=== PATIENT | female | born 1960 | race Caucasian/White ===

== ENCOUNTER → 2016-08-11 | Outpatient (CLI) | payer OTHER ==
[2016-08-13 09:58] LABS: VITAMIN D 25-HYDROXY 8.1 ng/mL (30.0-100.0)
== END ==
LOC: OD 17:11
DX: M19.90 Unspecified osteoarthritis, unspecified site (principal)
CPT/HCPCS: 36415; 82306; 86038; 86430

== ENCOUNTER → 2016-08-11 | Outpatient (CLI) | payer OTHER | LOC: SP 15:57 | DX: M79.661 Pain in right lower leg (principal) | CPT/HCPCS: 93971 ==

== ENCOUNTER 2016-08-30 09:31 | Day surgery (SDC) | payer OTHER ==
[~2016-08-30 09:31] MED LIST: PROPOFOL INJ 200 MG/20 ML VIAL IV ONE
[2016-08-30] MEDS ORDERED: PROPOFOL INJ 200 MG/20 ML VIAL IV ONE (10:40)
[2016-08-30 11:45] VITALS: BP 141/76
--- NOTE | 2016-08-30 13:47 | Operative Report ---
Operative Report DATE OF SURGERY: 08/30/16 Operative Report: The risks, benefits and alternatives of the procedure including risks of bleeding, perforation requiring surgery are explained to the patient detail and informed consent is obtained. Patient is placed in the left lateral decubital position and brought back to the endoscopy suite. Timeout is called. Propofol medications administered. A rectal examination was done which did not reveal any masses, tears or fissures. An Olympus video scope was inserted into the patient's rectum. The scope was then advanced all the way to the cecum. The cecum was identified by the usual anatomical landmarks of the ileocecal valve as well as the appendiceal office. Photodocumentation is obtained. Prep is good. The scope was then sequentially pulled back via the various segments of the colon including the ascending colon, hepatic flexure, transverse colon, splenic flexure, descending colon and finally into the rectosigmoid portions of the colon. Retroflexion maneuvers performed. Following this the patient's stretcher was turned around and the EGD performed. The risks benefits and alternatives of the procedure explained to the patient in detail and informed consent is obtained that GIF Olympus video scope was inserted into the patient's mouth and hypopharynx the esophagus is identified intubated and insufflated the scope was then advanced through the esophagus stomach and duodenum retroflexion maneuver is done the esophagus stomach and first and second portions of the duodenum examined PREOPERATIVE DIAGNOSIS: For the colonoscopy indications include 1. Change of bowel habits 2. Blood in stool 3. History of polyps patient states that she has Crohn's disease for colon "18 years but has not been on any medication. Epigastric pain POSTOPERATIVE DIAGNOSIS: Mild gastritis status post biopsy. Mild right-sided colitis status post biopsy. No evidence of ulcers or inflammation to suggest Crohn's disease. OPERATION: Colonoscopy with biopsy. EGD with biopsy ANESTHESIA: LMAC TISSUE REMOVED OR ALTERED: Colon specimens obtained. Gastric specimens obtained COMPLICATIONS: None. ESTIMATED BLOOD LOSS: none. INTRAOPERATIVE FINDINGS: As described above. PROCEDURE: Patient tolerated the procedure well. No immediate postprocedure complications are noted. Patient is discharged in good condition. Discharge date 08/30/2016. Discharge diet: Regular. Discharge activity: Regular. Patient does have a 2-3 week follow-up to discuss findings. We'll await on biopsies. Patient is instructed to call the office or proceed to the emergency room should there be any further problems or questions. Surveillance colonoscopy in the next 7-10 years if biopsies are negative.
== END 2016-08-30 11:30 | disposition home or self-care (01) ==
LOC: END 09:31
PROVIDERS: ATTEND Internal Medicine Gastroenterology
PROC: 0DB68ZX Excision of Stomach, Via Natural or Artificial Opening Endoscopic, Diagnostic (ICD-10-PCS; principal; 2016-08-30 11:30)
PROC: 0DBF8ZX Excision of Right Large Intestine, Via Natural or Artificial Opening Endoscopic, Diagnostic (ICD-10-PCS; 2016-08-30 11:30)
DX: K29.50 Unspecified chronic gastritis without bleeding (principal); B96.81 Helicobacter pylori [H. pylori] as the cause of diseases classified elsewhere; K52.9 Noninfective gastroenteritis and colitis, unspecified; E11.9 Type 2 diabetes mellitus without complications; I10 Essential (primary) hypertension; F17.210 Nicotine dependence, cigarettes, uncomplicated; Z79.899 Other long term (current) drug therapy; Z79.84 Long term (current) use of oral hypoglycemic drugs
CPT/HCPCS: 43239; 45380; 82962; 88342 ×2; 88305 ×2; J2704; 740

== ENCOUNTER 2017-08-03 11:45 | Emergency (ER) | payer OTHER ==
--- NOTE | 2017-08-03 12:44 | ER Document Report ---
ED Respiratory Problem - General Chief Complaint: Cough Stated Complaint: COUGH,CONGESTION,BACK PAIN Time Seen by Provider: 08/03/17 12:15 Mode of Arrival: Ambulatory Information source: Patient Notes: 57-year-old female presents to ED for complaint of cough congestion chest discomfort nasal drainage sinus pressure headache times a week with no fever. She states she does smoke a half pack a day. 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 TRAVEL OUTSIDE OF THE [place] IN LAST 30 DAYS: No - HPI Patient complains to provider of: Chest pain, Cough - Chest discomfort, Short of breath Onset: Last week Duration: Continuous Initiating Event: URI, Other - Smoker Quality of pain: Achy Severity: Moderate Pain Level: 3 Context: Smoker Cough: Nonproductive Sputum amount: None Associated symptoms: Congestion, Cough, PND, Runny nose, Sinus pain/pressure, Short of breath, Sore Throat. denies: Fever Similar symptoms previously: Yes Recently seen / treated by doctor: No - Related Data Allergies/Adverse Reactions: meloxicam [From Mobic] Allergy (Mild, Verified 08/03/17 11:47) RASH, ITCHING midazolam [From Versed] Adverse Reaction (Severe, Verified 08/03/17 11:47) ALTERED MENTAL STATUS, SHAKING OF EXTREMITIES NSAIDS (Non-Steroidal Anti-Inflamma [Nsaids] Adverse Reaction (Severe, Verified 08/03/17 11:47) STOMACH PAIN Past Medical History - General Information source: Patient - Social History Smoking Status: Current Every Day Smoker Cigarette use (# per day): Yes - 10 cigarettes a day Chew tobacco use (# tins/day): No Smoking Education Provided: Yes - 3 minutes Frequency of alcohol use: Occasional Drug Abuse: None Occupation: [employer] Family History: Reviewed & Not Pertinent Patient has suicidal ideation: No Patient has homicidal ideation: No - Past Medical History Cardiac Medical History: Reports: Hx Hypertension Pulmonary Medical History: Reports: Hx Bronchitis, Hx Pneumonia EENT Medical History: Reports: None Neurological Medical History: Reports: None Endocrine Medical History: Reports: Hx Diabetes Mellitus Type 2 Renal/ Medical History: Reports: None Malignancy Medical History: Reports: None GI Medical History: Reports: None Musculoskeltal Medical History: Reports Hx Arthritis Skin Medical History: Reports None Psychiatric Medical History: Reports: None Traumatic Medical History: Reports: None Infectious Medical History: Reports: None Surgical Hx: Negative Past Surgical History: Reports: None - Immunizations Hx Diphtheria, Pertussis, Tetanus Vaccination: No Review of Systems - Review of Systems Constitutional: Recent illness EENT: Nose discharge, Sinus pressure, Sinus discharge Cardiovascular: No symptoms reported Respiratory: Cough Gastrointestinal: No symptoms reported Genitourinary: No symptoms reported Female Genitourinary: No symptoms reported Musculoskeletal: No symptoms reported Skin: No symptoms reported Hematologic/Lymphatic: No symptoms reported Neurological/Psychological: Headaches -: Yes All other systems reviewed and negative Physical Exam - Vital signs Vitals: Temp Pulse Resp BP Pulse Ox 98.0 F 88 20 154/78 H 100 08/03/17 11:50 08/03/17 11:50 08/03/17 11:50 08/03/17 11:50 08/03/17 11:50 Interpretation: Normal - General General appearance: Appears well, Alert - HEENT Head: Normocephalic, Atraumatic Eyes: Normal Pupils: PERRL Ears: Normal External canal: Normal Tympanic membrane: Normal Sinus: Normal Nasal: Purulent discharge, Swelling, Clear rhinorrhea Mouth/Lips: Normal Mucous membranes: Normal Pharynx: Post nasal drainage Neck: Normal - Respiratory Respiratory status: No respiratory distress Chest status: Nontender Breath sounds: Normal Chest palpation: Normal - Cardiovascular Rhythm: Regular Heart sounds: Normal auscultation Murmur: No - Abdominal Inspection: Normal Distension: No distension Bowel sounds: Normal Tenderness: Nontender Organomegaly: No organomegaly - Back Back: Normal, Nontender - Extremities General upper extremity: Normal inspection, Nontender, Normal color, Normal ROM , Normal temperature General lower extremity: Normal inspection, Nontender, Normal color, Normal ROM , Normal temperature, Normal weight bearing. No: Gerard's sign - Neurological Neuro grossly intact: Yes Cognition: Normal Orientation: AAOx4 Chuck Coma Scale Eye Opening: Spontaneous Chuck Coma Scale Verbal: Oriented Chuck Coma Scale Motor: Obeys Commands Chuck Coma Scale Total: 15 Speech: Normal Motor strength normal: LUE, RUE, LLE, RLE Sensory: Normal - Psychological Associated symptoms: Normal affect, Normal mood - Skin Skin Temperature: Warm Skin Moisture: Dry Skin Color: Normal Course - Re-evaluation Re-evalutation: 08/03/17 14:08 Chest x-ray discussed with patient. Written report given to patient to follow- up with her primary doctor. Patient requesting antibiotics. Education given concerning the fact that antibiotic do not have a viral illness and she does not need antibiotics at this time. Discussed different treatments for cold. And that she should follow-up with her primary doctor. - Vital Signs Vital signs: Temp Pulse Resp BP Pulse Ox 98.0 F 88 20 154/78 H 100 08/03/17 11:50 08/03/17 11:50 08/03/17 11:50 08/03/17 11:50 08/03/17 11:50 - Diagnostic Test Radiology reviewed: Image reviewed, Reports reviewed Discharge - Discharge Clinical Impression: URI (upper respiratory infection) Qualifiers: URI type: unspecified URI Qualified Code(s): J06.9 - Acute upper respiratory infection, unspecified Condition: Stable Disposition: HOME, SELF-CARE Additional Instructions: UPPER RESPIRATORY ILLNESS: You have a viral infection of the respiratory passages -- a "cold." This common infection causes nasal congestion, drainage, and often sore throat and cough. It is highly contagious. The disease usually lasts about 10 to 14 days. There is no "cure" for the viral infection -- it must run its course. If there is a complication, such as bacterial infection in the nose, sinuses, middle ear, or bronchial tubes, antibiotics may be required. The antibiotics won't affect the virus. Drink plenty of fluids. A humidifier may help. An expectorant medication or decongestant may make you more comfortable. Use acetaminophen or ibuprofen for fever or aches. See the doctor if fever persists over two days, if there is any significant worsening of your symptoms, or if you simply fail to improve as expected. High Blood Pressure When your blood pressure was taken today it was elevated. Today's reading was__154/78 . Pre-hypertension/Hypertension: The patient has been informed that they may have pre-hypertension or Hypertension based on a blood pressure reading in the emergency department. I recommend that the patient call the primary care provider listed on their discharge instructions or a physician of their choice this wee to arrange follow up for further evaluation of possible pre- hypertension or Hypertension. Sometimes, stress or illness causes a temporary elevation of your blood pressure. We suggest that you get your blood pressure measured three more times during the next few days to see if this is more than a temporary abnormality. If your blood pressure is greater than 150/90 on each occasion, you must have treatment. Some simple things you can do to help are: If you have blood pressure medicine but aren't using it regularly, start taking it again. Get some aerobic exercise for at least 20 minutes on a daily basis. (See your doctor before beginning a new exercise program.) Eat a low-fat diet. Lose excess weight. Avoid salty foods and avoid adding salt to any of the foods you eat. Avoid diet pills, decongestants, "energizing" herbs, and other medicines that elevate blood pressure. If left untreated, hypertension greatly enhances your risk for developing heart disease and strokes. Please don't ignore this problem. COUGH-SUPPRESSANT & EXPECTORANT MEDICATION: You are to use a cough medication as needed for relief of symptoms. This medicine is a combination of an expectorant (to make the mucous thinner and more easily "coughed up") and a cough suppressant (to reduce the frequency of coughing). The cough-suppressant medicine is related to narcotics. You may experience mild nausea and sleepiness. Some patients who are very sensitive to narcotics may have stomach pain from this medicine. Taking the medicine with food reduces these side effects. Do not drive or work with machinery until you know how this medicine affects you. The expectorant should have no side effects. Iodine-containing expectorants (such as organidin) should not be taken by persons with active thyroid disease unless approved by your doctor. Call the doctor if you develop shortness of breath, hives, rash, itching, lightheadedness, or severe nausea and vomiting. USE OF ACETAMINOPHEN (Tylenol): Acetaminophen may be taken for pain relief or fever control. It's much safer than aspirin, offering a wider range of "safe" dosages. It is safe during . Some brand names are Tylenol, Panadol, Datril, Anacin 3, Tempra, and Liquiprin. Acetaminophen can be repeated every four hours. The following are maximum recommended dosages: >89 pounds or adults 650 mg to 900 mg Acetaminophen can be repeated every four hours. Maximum dose not to exceed 4000 mg a day. SMOKING: If you smoke, you should stop smoking. The tar and chemicals in cigarette smoke are harmful. Smoking has been shown to cause: emphysema chronic bronchitis lung cancer mouth and throat cancer stomach and pancreas cancer premature aging defects In addition, smoking increases ear and lung infections in children of smokers. FOLLOW-UP CARE: If you have been referred to a physician for follow-up care, call the physician s office for an appointment as you were instructed or within the next two days. If you experience worsening or a significant change in your symptoms, notify the physician immediately or return to the Emergency Department at any time for re-evaluation. Forms: Elevated Blood Pressure, Smoking Cessation Education, Return to Work Referrals: BENEDICT LOCK MD [Primary Care Provider] - Follow up as needed
--- NOTE | 2017-08-03 13:32 | RADIOLOGY REPORT (SQ) ---
EXAM DESCRIPTION: CHEST PA/LAT COMPLETED DATE/TIME: 08/03/2017 1:05 pm REASON FOR STUDY: cough congestion sick week smokes COMPARISON: 07/01/2016 EXAM PARAMETERS: NUMBER OF VIEWS: two views TECHNIQUE: Digital Frontal and Lateral radiographic views of the chest acquired. RADIATION DOSE: NA LIMITATIONS: none FINDINGS: LUNGS AND PLEURA: No opacities, masses or pneumothorax. No pleural effusion. MEDIASTINUM AND HILAR STRUCTURES: No masses or contour abnormalities. HEART AND VASCULAR STRUCTURES: Heart normal size. No evidence for failure. BONES: No acute findings. HARDWARE: Clips right upper quadrant post cholecystectomy OTHER: No other significant finding. IMPRESSION: NO SIGNIFICANT RADIOGRAPHIC FINDING IN THE CHEST. TECHNICAL DOCUMENTATION: JOB ID: [id number] [employer]- All Rights Reserved
[2017-08-03 14:11] VITALS: BP 158/79
== END 2017-08-03 14:11 | disposition home or self-care (01) ==
LOC: ER 11:45
DX: J06.9 Acute upper respiratory infection, unspecified (principal); R05 Cough; R09.81 Nasal congestion; M54.9 Dorsalgia, unspecified; R09.89 Other specified symptoms and signs involving the circulatory and respiratory systems; R51 Headache; F17.210 Nicotine dependence, cigarettes, uncomplicated
CPT/HCPCS: 71046; 99283

== ENCOUNTER 2017-12-20 11:51 | Emergency (ER) | payer OTHER ==
[2017-12-20 12:04] VITALS: BP 148/88
[2017-12-20] MEDS ORDERED: CYCLOBENZAPRINE HCL 10 MG TABLET PO ONE (12:12)
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
== END 2017-12-20 13:26 | disposition home or self-care (01) ==
LOC: ER 11:51
DX: S16.1XXA Strain of muscle, fascia and tendon at neck level, initial encounter (principal); M54.6 Pain in thoracic spine; M79.602 Pain in left arm; V89.2XXA Person injured in unspecified motor-vehicle accident, traffic, initial encounter; F17.200 Nicotine dependence, unspecified, uncomplicated; I10 Essential (primary) hypertension; E11.9 Type 2 diabetes mellitus without complications
CPT/HCPCS: 71046; 72110; 99284

== ENCOUNTER → 2018-03-09 | Outpatient (CLI) | payer OTHER ==
[~2018-03-09] MED LIST changes: +DIAZEPAM 2 MG TABLET ONE; -PROPOFOL INJ 200 MG/20 ML VIAL IV ONE
--- NOTE | 2018-03-09 17:47 | RADIOLOGY REPORT (SQ) ---
EXAM DESCRIPTION: MRI CERVICAL SPINE WITHOUT COMPLETED DATE/TIME: 03/09/2018 11:44 am REASON FOR STUDY: NECK PAIN M54.2 CERVICALGIA M25.512 PAIN IN LEFT SHOULDER COMPARISON: None. TECHNIQUE: Sagittal and Axial imaging includes T1, T2, STIR and gradient echo sequences. LIMITATIONS: None. FINDINGS: ALIGNMENT: Normal. VERTEBRAE: Intact. BONE MARROW: Normal. No marrow replacement or reactive changes. DISCS: Diffuse decreased T2 weighted intervertebral disc signal. Disc space loss of height at C5-6 a nd C6-7 HARDWARE: None in the spine. CORD AND BASE OF BRAIN: Normal in size and signal intensity. SOFT TISSUES: No soft tissue masses. C1-C2: No significant spinal stenosis. C2-C3: No significant spinal stenosis or exit foraminal stenosis. C3-C4: Left uncovertebral hypertrophy/bony spurring causes high-grade left foraminal stenosis. No ce ntral stenosis or right foraminal narrowing. C4-C5: No central or right foraminal narrowing. Mild left foraminal stenosis from facet and uncovert ebral hypertrophy. C5-C6: Mild diffuse posterior disc bulge and bony spurring effaces the ventral thecal sac and abuts t he ventral cord without cord flattening or abnormal intrinsic cord signal. Borderline central canal narrowing. No right foraminal narrowing. Moderate left foraminal stenosis from facet and uncoverteb ral hypertrophy C6-C7: Bulky left-sided uncovertebral joint bony spurring is present causing high-grade left foramina l stenosis at C6-7. This is best shown on axial T2 series 7, images 91-97. Elsewhere at C6-7, mild posterior disc bulge and bony spurring partly effaces the ventral thecal sac, without cord flattening or abnormal intrinsic cord signal. Borderline central canal stenosis. Mild right foraminal narrowi ng. C7-T1: No central stenosis or right foraminal narrowing. Mild left foraminal narrowing from facet an d uncovertebral hypertrophy. UPPER THORACIC: Incompletely imaged. No significant spinal stenosis or exit foraminal stenosis. OTHER: No other significant finding. IMPRESSION: Significant left-sided foraminal stenosis at C6-7, and to a lesser extent and C5-6 and C 7-T1. TECHNICAL DOCUMENTATION: JOB ID: [id number] [employer]- All Rights Reserved Reading location - IP/workstation name: [facility]
--- NOTE | 2018-03-11 10:29 | RADIOLOGY REPORT (SQ) ---
EXAM DESCRIPTION: MRI LT UPPER JOINT WITHOUT COMPLETED DATE/TIME: 03/09/2018 11:44 am REASON FOR STUDY: L SHOULDER PAIN M54.2 CERVICALGIA M25.512 PAIN IN LEFT SHOULDER COMPARISON: None. TECHNIQUE: Left shoulder images acquired and stored on PACS. Multiplanar imaging to include fat sens itive sequences such as T1, water sensitive sequences such as FST2/STIR, cartilage sensitive sequence s such as FSPD/gradient-echo sequences. LIMITATIONS: None. FINDINGS: BONE MARROW AND CORTEX: No worrisome bone lesions or marrow replacement. No occult fractur es. JOINT OR BURSAL EFFUSION: No significant joint or bursal fluid. No suggestion of loose bodies. GLENO-HUMERAL ARTICULATION: Chondral thinning without discrete defects identified. No significant re active bone change. ACROMION AND AC JOINT: Mild degenerative overgrowth. No subacromial compromise or significant acro mial spurring. ROTATOR CUFF AND INTERVAL: Mild bursal surface fraying in the cuff, particularly along the anterior s upraspinatus. No high-grade partial or full-thickness tear evident, however. No cuff muscle atrophy . LABRUM AND BICEPS LABRAL COMPLEX: Intact. No labral tear. Intra-articular long-head biceps tendon n ormal. Distal biceps in normal location in bicipital groove. REMAINDER OF LABRUM AND IGHL : No gross tear detected. PERIARTICULAR AND ADJACENT SOFT TISSUES: No masses or abnormal nodes. OTHER: No other significant finding. IMPRESSION: 1. Mild cuff disease. No suggestion of significant rotator cuff tear. 2. Fairly mild A C and glenohumeral DJD. Other findings as above. TECHNICAL DOCUMENTATION: JOB ID: [id number] [employer]- All Rights Reserved Reading location - IP/workstation name: [facility]
== END ==
LOC: RAD 09:26
DX: M54.2 Cervicalgia (principal); M25.512 Pain in left shoulder; M19.012 Primary osteoarthritis, left shoulder; M48.02 Spinal stenosis, cervical region
CPT/HCPCS: 73221; 72141; J3490

== ENCOUNTER → 2018-10-02 | Outpatient (CLI) | payer OTHER ==
[2018-10-02 09:42] LABS: ABSOLUTE EOSINOPHILS # (AUTO) 0.1 10^3/uL (0.0-0.6); ABSOLUTE LYMPHOCYTES (AUTO) 2.1 10^3/uL (0.5-4.7); ABSOLUTE MONOCYTES (AUTO) 0.6 10^3/uL (0.1-1.4); BASOPHILS % (AUTO) 0.6 % (0-2); EOSINOPHILS % (AUTO) 1.4 % (0-6); HEMATOCRIT 38.3 % (36.0-47.0); HEMOGLOBIN 13.6 g/dL (12.0-15.5); MEAN CORPUSCULAR HEMOGLOBIN 35.8 pg (27.0-33.4); MEAN CORPUSCULAR HGB CONC 35.4 g/dL (32.0-36.0); MEAN CORPUSCULAR VOLUME 101 fl (80-97); PLATELET COUNT 326 10^3/uL (150-450); RED BLOOD COUNT 3.78 10^6/uL (3.72-5.28); RED CELL DISTRIBUTION WIDTH 12.2 % (11.5-14.0); TOTAL CELLS COUNTED % (AUTO) 100 %; WHITE BLOOD COUNT 5.8 10^3/uL (4.0-10.5)
[2018-10-02 10:02] LABS: ALANINE AMINOTRANSFERASE 32 U/L (9-52); ALBUMIN 4.9 g/dL (3.5-5.0); ALKALINE PHOSPHATASE 71 U/L (38-126); ANION GAP 10 (5-19); ASPARTATE AMINO TRANSFERASE 27 U/L (14-36); BILIRUBIN,DIRECT 0.1 mg/dL (0.0-0.4); BILIRUBIN,TOTAL 0.5 mg/dL (0.2-1.3); BLOOD UREA NITROGEN 7 mg/dL (7-20); CALCIUM 10.1 mg/dL (8.4-10.2); CARBON DIOXIDE 28 mmol/L (22-30); CHLORIDE 102 mmol/L (98-107); CHOLESTEROL 192.95 mg/dL (0-200); GLUCOSE 104 mg/dL (75-110); POTASSIUM 5.1 mmol/L (3.6-5.0); SODIUM 139.9 mmol/L (137-145); TOTAL PROTEIN 7.5 g/dL (6.3-8.2); TRIGLYCERIDES 59 mg/dL (<150)
[2018-10-02 10:13] LABS: DIRECT LDL 90 mg/dL (<100)
== END ==
LOC: CCC 09:08
DX: I10 Essential (primary) hypertension (principal); E55.9 Vitamin D deficiency, unspecified; R11.2 Nausea with vomiting, unspecified
CPT/HCPCS: 36415; 80053; 80061; 82306; 83036; 84443; 85025

== ENCOUNTER → 2018-11-15 | Outpatient (CLI) | payer OTHER ==
--- NOTE | 2018-11-15 15:56 | RADIOLOGY REPORT (SQ) ---
EXAM DESCRIPTION: HUMERUS RIGHT COMPLETED DATE/TIME: 11/15/2018 3:41 pm REASON FOR STUDY: PAIN IN RT ARM M79.601 PAIN IN RIGHT ARM COMPARISON: None. NUMBER OF VIEWS: Two views. TECHNIQUE: Two radiographic images were acquired of the right humerus to include elbow and shoulder in at least one projection. LIMITATIONS: None. FINDINGS: MINERALIZATION: Normal. BONES: No acute fracture or dislocation. No worrisome bone lesions. SOFT TISSUES: No obvious swelling or foreign body. OTHER: No other significant finding. IMPRESSION: NEGATIVE STUDY OF THE RIGHT HUMERUS. NO RADIOGRAPHIC EVIDENCE OF ACUTE INJURY. TECHNICAL DOCUMENTATION: JOB ID: [id number] [employer]- All Rights Reserved Reading location - IP/workstation name: [email or web address]
== END ==
LOC: CCC 15:28
DX: M79.601 Pain in right arm (principal)

== ENCOUNTER 2019-08-18 12:07 | Emergency (ER) | payer SELFPAY ==
[2019-08-18] MEDS ORDERED: AMPICILLIN SOD/SULBACTAM 3 GM VIAL IV ONE (12:28)
[2019-08-18] MEDS ORDERED: OXYCODONE HCL IR 5 MG TABLET PO ONE (12:28)
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
[2019-08-18 13:07] LABS: ABSOLUTE BASOPHILS # (AUTO) 0.1 10^3/uL (0.0-0.2); ABSOLUTE EOSINOPHILS # (AUTO) 0.1 10^3/uL (0.0-0.6); ABSOLUTE LYMPHOCYTES (AUTO) 2.7 10^3/uL (0.5-4.7); ABSOLUTE MONOCYTES (AUTO) 1.1 10^3/uL (0.1-1.4); BASOPHILS % (AUTO) 0.5 % (0-2); EOSINOPHILS % (AUTO) 0.9 % (0-6); HEMATOCRIT 42.8 % (36.0-47.0); HEMOGLOBIN 14.6 g/dL (12.0-15.5); LYMPHOCYTES % (AUTO) 24.8 % (13-45); MEAN CORPUSCULAR HEMOGLOBIN 34.7 pg (27.0-33.4); MEAN CORPUSCULAR VOLUME 102 fl (80-97); MONOCYTES % (AUTO) 10.3 % (3-13); PLATELET COUNT 333 10^3/uL (150-450); SEGMENTED NEUTROPHILS % (AUTO) 63.5 % (42-78); TOTAL CELLS COUNTED % (AUTO) 100 %; WHITE BLOOD COUNT 11.1 10^3/uL (4.0-10.5)
[2019-08-18 13:17] LABS: ALBUMIN 4.9 g/dL (3.5-5.0); ALKALINE PHOSPHATASE 76 U/L (38-126); ANION GAP 9 (5-19); ASPARTATE AMINO TRANSFERASE 23 U/L (14-36); BILIRUBIN,DIRECT 0.3 mg/dL (0.0-0.4); BILIRUBIN,TOTAL 0.7 mg/dL (0.2-1.3); BLOOD UREA NITROGEN 7 mg/dL (7-20); CALCIUM 10.4 mg/dL (8.4-10.2); CARBON DIOXIDE 31 mmol/L (22-30); CHLORIDE 100 mmol/L (98-107); GLUCOSE 99 mg/dL (75-110); POTASSIUM 4.6 mmol/L (3.6-5.0)
--- NOTE | 2019-08-18 13:46 | RADIOLOGY REPORT (SQ) ---
EXAM DESCRIPTION: HAND LEFT 3 VIEWS COMPLETED DATE/TIME: 08/18/2019 1:28 pm REASON FOR STUDY: cat bite left hand, eval foreign body COMPARISON: None. EXAM PARAMETERS: NUMBER OF VIEWS: Three views. TECHNIQUE: AP, lateral and oblique radiographic images acquired of the left hand. LIMITATIONS: None. FINDINGS: MINERALIZATION: Normal. BONES: No acute fracture or dislocation. Degenerative changes are noted at the proximal and distal i nterphalangeal joints. SOFT TISSUES: There is diffuse soft tissue swelling. Scattered radiopaque densities measuring up to 1 mm are noted within the soft tissues of the 1st, 3rd and 4th fingers. IMPRESSION: Diffuse soft tissue swelling at the left hand. Scattered tiny radiopaque densities with in the soft tissues of the 1st, 3rd and 4th fingers; please correlate with clinical exam to evaluate for foreign bodies. TECHNICAL DOCUMENTATION: JOB ID: [id number] 2010 [employer]- All Rights Reserved Reading location - IP/workstation name: [email or web address]
--- NOTE | 2019-08-18 16:00 | ER Document Report ---
ED Animal Bite - General Chief Complaint: Cat Bite Stated Complaint: CAT BITE Time Seen by Provider: 08/18/19 12:25 Primary Care Provider: [facility] [NO LOCAL MD] - Follow up as needed TRAVEL OUTSIDE OF THE [place] IN LAST 30 DAYS: No - Related Data Allergies/Adverse Reactions: meloxicam [From Mobic] Allergy (Mild, Verified 12/20/17 12:00) RASH, ITCHING midazolam [From Versed] Adverse Reaction (Severe, Verified 12/20/17 12:00) ALTERED MENTAL STATUS, SHAKING OF EXTREMITIES NSAIDS (Non-Steroidal Anti-Inflamma [Nsaids] Adverse Reaction (Severe, Verified 12/20/17 12:00) STOMACH PAIN Past Medical History - Social History Smoking Status: Current Every Day Smoker Frequency of alcohol use: Occasional Drug Abuse: None Family History: Reviewed & Not Pertinent Patient has suicidal ideation: No Patient has homicidal ideation: No - Past Medical History Cardiac Medical History: Reports: Hx Hypertension Denies: Hx Heart Attack Pulmonary Medical History: Reports: Hx Bronchitis, Hx Pneumonia Denies: Hx Asthma, Hx COPD Neurological Medical History: Denies: Hx Seizures Endocrine Medical History: Reports: Hx Diabetes Mellitus Type 2 Renal/ Medical History: Denies: Hx Peritoneal Dialysis Musculoskeletal Medical History: Reports Hx Arthritis - Immunizations Hx Diphtheria, Pertussis, Tetanus Vaccination: No Physical Exam - Vital signs Vitals: Temp Pulse Resp BP Pulse Ox 98.1 F 87 18 160/97 H 99 08/18/19 12:11 08/18/19 12:11 08/18/19 12:11 08/18/19 12:11 08/18/19 12:11 Course - Vital Signs Vital signs: Temp Pulse Resp BP Pulse Ox 98.1 F 87 18 160/97 H 99 08/18/19 12:11 08/18/19 12:11 08/18/19 12:11 08/18/19 12:11 08/18/19 12:11 - Laboratory Result Diagrams: 08/18/19 12:45 08/18/19 12:45 Laboratory results interpreted by me: 08/18/19 08/18/19 12:45 12:45 WBC 11.1 H MCV 102 H MCH 34.7 H Carbon Dioxide 31 H Creatinine 0.49 L Calcium 10.4 H Discharge - Discharge Clinical Impression: Cat bite of hand, Cellulitis of hand, left Condition: Stable Disposition: AGAINST MEDICAL ADVICE Instructions: Animal Bites ([facility]), Cellulitis ([facility]), Stop Smoking ([facility]) Additional Instructions: You are leaving AGAINST MEDICAL ADVICE. You are free to come back at any time to be further evaluated and admitted to the hospital. Please make sure that you are not smoking or drinking. Please take your antibiotics and control your blood sugar. Prescriptions: Amox Tr/Potassium Clavulanate [Augmentin 875-125 Tablet] 1 tab PO BID 10 Days #24 tablet Tramadol HCl [Ultram 50 mg Tablet] 50 mg PO BIDP PRN #10 tablet PRN Reason: [facility]errals: [facility] [NO LOCAL MD] - Follow up as needed ZEE RAJAN DO [ACTIVE STAFF] - 08/21/19
[2019-08-18 16:20] VITALS: BP 111/68
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
== END 2019-08-18 16:20 | disposition left against medical advice (07) ==
LOC: ER 12:07
DX: S61.452A Open bite of left hand, initial encounter (principal); L03.114 Cellulitis of left upper limb; W55.01XA Bitten by cat, initial encounter; F17.210 Nicotine dependence, cigarettes, uncomplicated; I10 Essential (primary) hypertension; E11.9 Type 2 diabetes mellitus without complications
CPT/HCPCS: 99283; 96365; 36415; 87040; 83605; 85025; 80053; 73130; J0295

== ENCOUNTER 2019-09-27 11:55 | Emergency (ER) | payer SELFPAY ==
[2019-09-27 12:07] VITALS: BP 155/68
--- NOTE | 2019-09-27 12:26 | ER Document Report ---
ED Medical Screen (RME) - General Stated Complaint: CHEST PAIN Time Seen by Provider: 09/27/19 12:22 Primary Care Provider: BENEDICT LOCK MD [Primary Care Provider] - Follow up as needed TRAVEL OUTSIDE OF THE [place] IN LAST 30 DAYS: No - HPI Notes: 09/27/19 12:25 Patient is a 59-year-old female sent by her family doctor for evaluation of chest pain. Patient states that she has been having on and off chest pain for the past 3 weeks, but more frequently over the past week. Patient states that this chest pain began last night and has been constant. Patient states that she will get an occasional pinching sensation, but mostly pressure and tightness. Pain will radiate around the left side of her chest. She is otherwise able to eat and drink without difficulty. She is urinating normally. No other concerns or complaints. Denies any prolonged immobilization, distance travel, recent surgery/trauma, personal cancer history, hormone use, or previous DVT/PE. Denies GARCIA, fever, neck pain, URI, n/v/d, Abd pain, dysuria, back pain, or rash. I have treated and performed a rapid initial assessment of this patient. A comprehensive ED assessment and evaluation of the patient, analysis of test results and completion of medical decision making process will be conducted by additional ED providers. PHYSICAL EXAMINATION: GENERAL: Well-appearing, well-nourished and in no acute distress. A&Ox4. Answers questions appropriately. LUNGS: Breath sounds clear to auscultation bilaterally and equal. No wheezes rales or rhonchi. HEART: Regular rate and rhythm without murmurs, rubs, gallops. Extremities: No cyanosis, clubbing, or edema b/l. Gerard negative bilaterally. No lower extremity asymmetry. NEUROLOGICAL: Normal speech, normal gait. PSYCH: Normal mood, normal affect. - Related Data Allergies/Adverse Reactions: meloxicam [From Mobic] Allergy (Mild, Verified 12/20/17 12:00) RASH, ITCHING midazolam [From Versed] Adverse Reaction (Severe, Verified 12/20/17 12:00) ALTERED MENTAL STATUS, SHAKING OF EXTREMITIES NSAIDS (Non-Steroidal Anti-Inflamma [Nsaids] Adverse Reaction (Severe, Verified 12/20/17 12:00) STOMACH PAIN Past Medical History - Past Medical History Cardiac Medical History: Reports: Hx Hypertension Denies: Hx Heart Attack Pulmonary Medical History: Reports: Hx Bronchitis, Hx Pneumonia Denies: Hx Asthma, Hx COPD Neurological Medical History: Denies: Hx Seizures Endocrine Medical History: Reports: Hx Diabetes Mellitus Type 2 Renal/ Medical History: Denies: Hx Peritoneal Dialysis Musculoskeltal Medical History: Reports Hx Arthritis - Immunizations Hx Diphtheria, Pertussis, Tetanus Vaccination: No Physical Exam - Vital signs Vitals: Temp Pulse Resp BP Pulse Ox 98.3 F 78 16 155/68 H 99 09/27/19 12:04 09/27/19 12:04 09/27/19 12:04 09/27/19 12:04 09/27/19 12:04 Course - Vital Signs Vital signs: Temp Pulse Resp BP Pulse Ox 98.3 F 78 16 155/68 H 99 09/27/19 12:04 09/27/19 12:04 09/27/19 12:04 09/27/19 12:04 09/27/19 12:04 Doctor's Discharge - Discharge Referrals: BENEDICT LOCK MD [Primary Care Provider] - Follow up as needed
[2019-09-27 12:57] LABS: ABSOLUTE LYMPHOCYTES (AUTO) 2.4 10^3/uL (0.5-4.7); ABSOLUTE MONOCYTES (AUTO) 0.6 10^3/uL (0.1-1.4); ABSOLUTE NEUT (AUTO) 4.4 10^3/uL (1.7-8.2); BASOPHILS % (AUTO) 0.4 % (0-2); EOSINOPHILS % (AUTO) 0.3 % (0-6); HEMATOCRIT 42.3 % (36.0-47.0); HEMOGLOBIN 14.9 g/dL (12.0-15.5); LYMPHOCYTES % (AUTO) 32.1 % (13-45); MEAN CORPUSCULAR HEMOGLOBIN 35.2 pg (27.0-33.4); MEAN CORPUSCULAR HGB CONC 35.2 g/dL (32.0-36.0); MEAN CORPUSCULAR VOLUME 100 fl (80-97); MONOCYTES % (AUTO) 8.6 % (3-13); PLATELET COUNT 345 10^3/uL (150-450); RED BLOOD COUNT 4.22 10^6/uL (3.72-5.28); RED CELL DISTRIBUTION WIDTH 12.2 % (11.5-14.0); SEGMENTED NEUTROPHILS % (AUTO) 58.6 % (42-78); TOTAL CELLS COUNTED % (AUTO) 100 %; WHITE BLOOD COUNT 7.5 10^3/uL (4.0-10.5)
--- NOTE | 2019-09-27 13:04 | RADIOLOGY REPORT (SQ) ---
EXAM DESCRIPTION: CHEST 2 VIEWS COMPLETED DATE/TIME: 09/27/2019 12:43 pm REASON FOR STUDY: CP COMPARISON: PA and lateral views of the chest from 12/20/2017. EXAM PARAMETERS: NUMBER OF VIEWS: Two views. TECHNIQUE: PA and lateral views of the chest were obtained.. RADIATION DOSE: NA LIMITATIONS: none FINDINGS: LUNGS AND PLEURA: No consolidation, pleural effusion or pneumothorax. MEDIASTINUM AND HILAR STRUCTURES: No mediastinal or hilar contour abnormality. HEART AND VASCULAR STRUCTURES: The cardiac silhouette and pulmonary vasculature are within normal garcia its. BONES: No acute findings. HARDWARE: Cholecystectomy clips. OTHER: No other finding. IMPRESSION: No acute cardiopulmonary process. TECHNICAL DOCUMENTATION: JOB ID: [id number] 2010 [employer]- All Rights Reserved Reading location - IP/workstation name: [email or web address]
[2019-09-27 13:11] LABS: ALKALINE PHOSPHATASE 81 U/L (38-126); ANION GAP 9 (5-19); ASPARTATE AMINO TRANSFERASE 35 U/L (14-36); BILIRUBIN,DIRECT 0.3 mg/dL (0.0-0.4); BILIRUBIN,TOTAL 0.4 mg/dL (0.2-1.3); BLOOD UREA NITROGEN 10 mg/dL (7-20); CALCIUM 10.2 mg/dL (8.4-10.2); CARBON DIOXIDE 30 mmol/L (22-30); CHLORIDE 101 mmol/L (98-107); GLUCOSE 94 mg/dL (75-110); POTASSIUM 4.3 mmol/L (3.6-5.0); TOTAL PROTEIN 8.2 g/dL (6.3-8.2)
[2019-09-27] MEDS ORDERED: NITROGLYCERIN 2% OINTMENT 1 GM PACKET TP ONE (16:02)
[2019-09-27] MEDS ORDERED: ASPIRIN 81 MG TABLET, CHEWABLE PO ONE (16:02)
--- NOTE | 2019-09-27 16:06 | ER Document Report ---
ED General - General Chief Complaint: Chest Pain Stated Complaint: CHEST PAIN Time Seen by Provider: 09/27/19 12:22 Primary Care Provider: BENEDICT LOCK MD [HONORARY] - Follow up as needed Mode of Arrival: Ambulatory Information source: Patient, Relative Notes: Patient is a 59-year-old female presenting to the emergency department chief complaint of chest pain. Patient states overall she has had some chest discomfort for the past couple of weeks however the past couple of days it is been much more severe. Patient states at its worst a 5 out of 5 currently l aying still sitting in the bed doing nothing she rates it as 3 out of 5. Patient does continue to smoke. Patient denies travel history trauma history sick contacts no nausea vomiting or diarrhea. TRAVEL OUTSIDE OF THE [place] IN LAST 30 DAYS: No - HPI Onset: Last week Onset/Duration: Gradual, Worse Quality of pain: Throbbing Severity: Moderate Pain Level: 3 Associated symptoms: None Exacerbated by: Denies Relieved by: Denies Similar symptoms previously: Yes Recently seen / treated by doctor: Yes - Related Data Allergies/Adverse Reactions: meloxicam [From Mobic] Allergy (Mild, Verified 12/20/17 12:00) RASH, ITCHING midazolam [From Versed] Adverse Reaction (Severe, Verified 12/20/17 12:00) ALTERED MENTAL STATUS, SHAKING OF EXTREMITIES NSAIDS (Non-Steroidal Anti-Inflamma [Nsaids] Adverse Reaction (Severe, Verified 12/20/17 12:00) STOMACH PAIN Home Medications: Metformin, Lisinopril, Gabapentin, Flexiril, Promethazine, Trazadone Past Medical History - General Information source: Patient, Relative - Social History Smoking Status: Current Every Day Smoker Cigarette use (# per day): Yes Smoking Education Provided: Yes Frequency of alcohol use: Rare Drug Abuse: None, Marijuana Lives with: Family Family History: Reviewed & Not Pertinent Patient has suicidal ideation: No Patient has homicidal ideation: No - Past Medical History Cardiac Medical History: Reports: Hx Hypertension Denies: Hx Heart Attack Pulmonary Medical History: Reports: Hx Bronchitis, Hx Pneumonia Denies: Hx Asthma, Hx COPD Neurological Medical History: Denies: Hx Seizures Endocrine Medical History: Reports: Hx Diabetes Mellitus Type 2 Renal/ Medical History: Denies: Hx Peritoneal Dialysis Musculoskeletal Medical History: Reports Hx Arthritis - Immunizations Hx Diphtheria, Pertussis, Tetanus Vaccination: No Review of Systems - Review of Systems Notes: REVIEW OF SYSTEMS: CONSTITUTIONAL : Denies fever, chills, or sweats. Denies recent illness. EENT: Denies eye, ear, throat, or mouth pain or symptoms. Denies nasal or sinus congestion. CARDIOVASCULAR: Per HPI RESPIRATORY: Denies cough, cold, or chest congestion. Denies shortness of breath, difficulty breathing, or wheezing. GASTROINTESTINAL: Denies abdominal pain. Denies nausea, vomiting, or diarrhea. Denies constipation. GENITOURINARY: Denies difficulty urinating, painful urination, burning, freq uency, or blood in urine. MUSCULOSKELETAL: Denies neck or back pain or joint pain or swelling. SKIN: Denies rash or skin lesions. HEMATOLOGIC : Denies easy bruising or bleeding. NEUROLOGICAL: Denies altered mental status or loss of consciousness. Denies headache. Denies weakness or paralysis or loss of use of either side. Denies problems with gait or speech. Denies sensory or motor loss. PSYCHIATRIC: Denies suicidal or homicidal ideations 10 Systems are negative unless otherwise specified above Physical Exam - Vital signs Vitals: Temp Pulse Resp BP Pulse Ox 98.3 F 78 16 155/68 H 99 09/27/19 12:04 09/27/19 12:04 09/27/19 12:04 09/27/19 12:04 09/27/19 12:04 - Notes Notes: PHYSICAL EXAMINATION: GENERAL: Well-appearing, well-nourished and in no acute distress. HEAD: Atraumatic, normocephalic. EYES: Pupils equal round and reactive to light, extraocular movements intact, sclera anicteric, conjunctiva are normal. ENT: nares patent, oropharynx clear without exudates. Moist mucous membranes. NECK: Normal range of motion, supple without lymphadenopathy, no appreciable JVD LUNGS: Lungs clear to auscultation bilaterally and equal. No wheezes rales or rhonchi. HEART: Regular rate and rhythm without murmurs ABDOMEN: Soft, nontender, normal bowel sounds. No guarding, no rebound. No masses appreciated. EXTREMITIES: Active full range of motion, no pitting or edema. No cyanosis. 2+ pulses x4 NEUROLOGICAL: No focal neurological deficits. Moves all extremities spontaneously and on command. SKIN: Warm, Dry, and intact. Normal turgor, no rashes or lesions noted. Course - Re-evaluation Re-evalutation: 09/27/19 16:05 On presentation patient has brought to hospital room IV access was obtained EKG was obtained portable chest x-ray has been ordered. Aspirin and nitro paste per protocol. 09/27/19 16:30 On reevaluation at this time patient is resting comfortably in hospital bed. I did discuss the laboratory EKG and radiologic results at this time and recommend that the patient be admitted for cardiac rule out and patient is stating that she is very much against staying in the hospital overnight. I have decided to wait till the second troponin has resulted and we will rediscuss. 09/27/19 17:12 I did discuss the secondary troponin and patient continues to state that she does not want to stay in the hospital overnight. I feel with the patient's medical risk factors and presenting complaint that she should stay and have successive evaluation of cardiac enzymes as well as a stress test in the morning. Patient is signed out AGAINST MEDICAL ADVICE. Patient is stable at time of departing the department. Patient was instructed to return to the emergency department for worsening symptoms otherwise follow-up with her primary care provider for possible outpatient stress test. - Vital Signs Vital signs: Temp Pulse Resp BP Pulse Ox 98.3 F 78 16 155/68 H 96 09/27/19 12:04 09/27/19 12:04 09/27/19 12:04 09/27/19 12:04 09/27/19 15:48 - Laboratory Result Diagrams: 09/27/19 12:35 09/27/19 12:35 Laboratory results interpreted by me: 09/27/19 12:35 MCV 100 H MCH 35.2 H - Diagnostic Test Radiology reviewed: Reports reviewed - EKG Interpretation by Me EKG shows normal: Sinus rhythm Rate: Normal Rhythm: NSR When compared to previous EKG there are: Previous EKG unavailable Discharge - Discharge Clinical Impression: Chest pain Qualifiers: Chest pain type: unspecified Qualified Code(s): R07.9 - Chest pain, unspecified Condition: Fair Disposition: AGAINST MEDICAL ADVICE Referrals: BENEDICT LOCK MD [HONORARY] - Follow up as needed
--- NOTE | 2019-09-27 19:43 | EKG REPORT ---
SEVERITY:- OTHERWISE NORMAL ECG - SINUS RHYTHM BORDERLINE RIGHT AXIS DEVIATION : Confirmed by: Johnna Malhotra MD 27-Sep-2019 19:42:58
== END 2019-09-27 17:00 | disposition left against medical advice (07) ==
LOC: ER 11:55
DX: R07.9 Chest pain, unspecified (principal); F17.210 Nicotine dependence, cigarettes, uncomplicated; I10 Essential (primary) hypertension; E11.9 Type 2 diabetes mellitus without complications; Z79.84 Long term (current) use of oral hypoglycemic drugs; Z79.899 Other long term (current) drug therapy; Z88.8 Allergy status to other drugs, medicaments and biological substances; Z53.20 Procedure and treatment not carried out because of patient's decision for unspecified reasons
CPT/HCPCS: 36415; 71046; 80053; 84484; 85025; 93005; 93010; 99285

== ENCOUNTER 2020-05-26 10:44 | Emergency (ER) | payer SELFPAY ==
[2020-05-26 11:58] LABS: HEMATOCRIT 43.9 % (36.0-47.0); HEMOGLOBIN 15.6 g/dL (12.0-15.5); MEAN CORPUSCULAR HGB CONC 35.5 g/dL (32.0-36.0); MEAN CORPUSCULAR VOLUME 99 fl (80-97); PLATELET COUNT 398 10^3/uL (150-450); RED BLOOD COUNT 4.45 10^6/uL (3.72-5.28); WHITE BLOOD COUNT 8.6 10^3/uL (4.0-10.5)
[2020-05-26 12:10] LABS: ALBUMIN 4.7 g/dL (3.5-5.0); ALKALINE PHOSPHATASE 71 U/L (38-126); ASPARTATE AMINO TRANSFERASE 21 U/L (14-36); BILIRUBIN,DIRECT 0.4 mg/dL (0.0-0.4); BILIRUBIN,TOTAL 0.6 mg/dL (0.2-1.3); BLOOD UREA NITROGEN 15 mg/dL (7-20); CALCIUM 10.7 mg/dL (8.4-10.2); CARBON DIOXIDE 15 mmol/L (22-30); GLUCOSE 91 mg/dL (75-110); POTASSIUM 3.8 mmol/L (3.6-5.0); TOTAL PROTEIN 7.4 g/dL (6.3-8.2)
[2020-05-26 12:16] LABS: CHLORIDE 93 mmol/L (98-107)
[2020-05-26 12:23] LABS: ANION GAP 22 (5-19)
[2020-05-26 12:24] LABS: ABSOLUTE LYMPHOCYTES# (MANUAL) 1.8 10^3/uL (0.5-4.7); ABSOLUTE MONOCYTES # (MANUAL) 1.7 10^3/uL (0.1-1.4); BAND NEUTROPHILS % (MANUAL) 4 % (3-5); BASOPHILS % (MANUAL) 0 % (0-2); EOSINOPHILS % (MANUAL) 0 % (0-6); LYMPHOCYTES % (MANUAL) 18 % (13-45); METAMYELOCYTES % (MANUAL) 1 % (0-1); MONOCYTES % (MANUAL) 20 % (3-13); RBC MORPHOLOGY COMMENT NORMO-CYTIC/CHROMIC; SEGMENTED NEUTROPHILS % (MAN) 54 % (42-78); TOTAL CELLS COUNTED 100
[2020-05-26 12:25] LABS: PLATELET COMMENT ADEQUATE
[2020-05-26] MEDS ORDERED: NORMAL SALINE 1000 ML 1,000 ML IV ONE (13:22)
[2020-05-26] MEDS ORDERED: MORPHINE SULFATE 10 MG/ML INJ IV ONE (13:38)
[2020-05-26] MEDS ORDERED: ONDANSETRON HCL INJ/PF 4 MG/2 ML SDV IV ONE (13:38)
--- NOTE | 2020-05-26 13:39 | ER Document Report ---
ED GI/ - General Chief Complaint: Abdominal Pain Stated Complaint: ABDOMINAL PAIN/NAUSEA/VOMITING/DIARRHEA Time Seen by Provider: 05/26/20 12:36 Primary Care Provider: [facility] [Primary Care Provider] - Follow up as needed Notes: Patient is a 59-year-old female presents emergency department with a chief complaint of abdominal pain and diarrhea. She states that her abdominal pain started 5 days ago. States that it is in her mid upper abdomen. Patient also states that she has diarrhea. She has a history of Crohn's disease. She has history of cholecystectomy in the past. TRAVEL OUTSIDE OF THE [place] IN LAST 30 DAYS: No - Related Data Allergies/Adverse Reactions: meloxicam [From Mobic] Allergy (Mild, Verified 05/26/20 11:08) RASH, ITCHING midazolam [From Versed] Adverse Reaction (Severe, Verified 05/26/20 11:08) ALTERED MENTAL STATUS, SHAKING OF EXTREMITIES NSAIDS (Non-Steroidal Anti-Inflamma [Nsaids] Adverse Reaction (Severe, Verified 05/26/20 11:08) STOMACH PAIN Home Medications: metformin, lisinopril Past Medical History - Social History Smoking Status: Current Every Day Smoker Chew tobacco use (# tins/day): No Frequency of alcohol use: None Drug Abuse: None Family History: Reviewed & Not Pertinent - Past Medical History Cardiac Medical History: Reports: Hx Hypertension Denies: Hx Heart Attack Pulmonary Medical History: Reports: Hx Bronchitis, Hx Pneumonia Denies: Hx Asthma, Hx COPD Neurological Medical History: Denies: Hx Seizures Endocrine Medical History: Reports: Hx Diabetes Mellitus Type 2 Renal/ Medical History: Denies: Hx Peritoneal Dialysis Musculoskeletal Medical History: Reports Hx Arthritis Past Surgical History: Reports: Hx Appendectomy, Hx Section, Hx Cholecystectomy, Hx Orthopedic Surgery - Immunizations Hx Diphtheria, Pertussis, Tetanus Vaccination: No Physical Exam - Vital signs Vitals: Temp Pulse Resp BP Pulse Ox 98.1 F 105 H 16 113/60 100 05/26/20 10:57 05/26/20 10:57 05/26/20 10:57 05/26/20 10:57 05/26/20 10:57 Course - Vital Signs Vital signs: Temp Pulse Resp BP Pulse Ox 98.1 F 105 H 16 113/60 100 05/26/20 10:57 05/26/20 10:57 05/26/20 10:57 05/26/20 10:57 05/26/20 10:57 - Laboratory Result Diagrams: 05/26/20 11:31 05/26/20 11:31 Laboratory results interpreted by me: 05/26/20 05/26/20 05/26/20 11:31 11:31 14:45 Hgb 15.6 H MCV 99 H MCH 35.0 H Monocytes % (Manual) 20 H Abs Monocytes (Manual) 1.7 H Sodium 130.4 L Chloride 93 L Carbon Dioxide 15 L Anion Gap 22 H Est GFR ( Amer) 56 L Est GFR (MDRD) Non-Af 47 L Calcium 10.7 H Lipase 657.6 H Urine Protein 30 H Urine Ketones 20 H Urine Blood SMALL H Urine Bilirubin SMALL H Discharge - Discharge Clinical Impression: Abdominal pain Qualifiers: Abdominal location: epigastric Qualified Code(s): R10.13 - Epigastric pain Condition: Stable Disposition: HOME, SELF-CARE Additional Instructions: Pancreatitis Pancreatitis is an inflammation of the pancreas, an organ at the back of your abdomen. The pancreas produces insulin and enzymes that digest your food. Pancreatitis can be caused by gallstones in the bile duct, by alcohol or viruses, or by excess fat or calcium in the blood stream. Occasionally, pancreatitis occurs when a stomach ulcer fontana through into the pancreas. We try to find the cause of pancreatitis, but some tests can't be done until the pancreas heals. The usual symptoms of pancreatitis are pain in the pit of the stomach that goes straight through to the back, vomiting, and low-grade fever. Severe cases require hospital admission, but many patients with mild pancreatitis do well at home. You will probably need medicine for pain and for vomiting. Sometimes we prescribe medicine to decrease stomach acid secretion and to decrease flow of pancreatic juices. Start with a diet of clear liquids (soda pop, juices). When the pain is decreasing, you can add some simple starches (potato, toast, applesauce). Avoid proteins and fats until you are completely painfree. When you're better, your doctor may suggest treatment to prevent future pancreatitis (such as gallbladder removal). Avoid alcohol forever. Get immediate treatment for any future episodes. Contact your doctor at once or return here if you have increasing pain, shortness of breath, general swelling, increasing size of the abdomen, continued vomiting, muscle spasms, or other new symptoms. Please also follow-up with Dr. Villar in regards to Crohn's disease. Prescriptions: Oxycodone HCl/Acetaminophen [Percocet 5-325 mg Tablet] 1 - 2 tab PO Q4H PRN #15 tablet PRN Reason: Referrals: [facility] [Primary Care Provider] - Follow up in 3-5 days WILMA VILLAR MD [ACTIVE STAFF] - Follow up in 1 week
--- NOTE | 2020-05-26 15:01 | RADIOLOGY REPORT (SQ) ---
EXAM DESCRIPTION: U/S ABDOMEN LIMITED W/O DOP IMAGES COMPLETED DATE/TIME: 05/26/2020 2:54 pm REASON FOR STUDY: RUQ abd pain; hx of Coleycystectomy COMPARISON: None. TECHNIQUE: Dynamic and static grayscale images acquired of the abdomen and recorded on PACS. Additio nal selected color Doppler and spectral images recorded. LIMITATIONS: None. FINDINGS: PANCREAS: Obscured by overlying bowel gas. LIVER: No masses. Echotexture normal. LIVER VASCULATURE: Normal directional flow of the main portal vein and hepatic veins. GALLBLADDER: Surgically absent. ULTRASOUND-DETECTED MOSHER'S SIGN: Not applicable. INTRAHEPATIC DUCTS AND COMMON DUCT: CBD and intrahepatic ducts normal caliber. No filling defects. AORTA: No aneurysm. RIGHT KIDNEY: Normal size. Normal echogenicity. No solid or suspicious masses. No hydronephrosis. No calcifications. PERITONEAL AND RIGHT PLEURAL SPACE: No ascites or effusions. OTHER: No other significant findings. IMPRESSION: Prior cholecystectomy. No acute findings. TECHNICAL DOCUMENTATION: JOB ID: [id number] 2010 [employer]- All Rights Reserved Reading location - IP/workstation name: [email or web address]
[2020-05-26 15:13] LABS: APPEARANCE,URINE CLOUDY; BILIRUBIN,URINE SMALL (NEGATIVE); COLOR,URINE AMBER; GLUCOSE, URINE NEGATIVE (NEGATIVE); KETONES,URINE 20 mg/dL (NEGATIVE); LEUKOCYTE ESTERASE,URINE NEGATIVE (NEGATIVE); NITRITE,URINE NEGATIVE (NEGATIVE); PROTEIN,URINE 30 mg/dL (NEGATIVE); URINE SPECIFIC GRAVITY 1.024; UROBILINOGEN,URINE NEGATIVE mg/dL (<2.0)
[2020-05-26 16:26] VITALS: BP 127/73
== END 2020-05-26 16:26 | disposition home or self-care (01) ==
LOC: ER 10:44
DX: R10.13 Epigastric pain (principal); R19.7 Diarrhea, unspecified; Z88.8 Allergy status to other drugs, medicaments and biological substances; F17.200 Nicotine dependence, unspecified, uncomplicated; E11.9 Type 2 diabetes mellitus without complications
CPT/HCPCS: 99285; 96361; 96374; 96375; 36415; 83690; 85025; 80053; 81001; 76705; J2270; J2405; J7030

== ENCOUNTER 2020-05-29 19:44 | Inpatient (IN) | payer SELFPAY ==
[2020-05-29] MEDS ORDERED: NORMAL SALINE 1000 ML 1,000 ML IV ONE (20:04)
[2020-05-29] MEDS ORDERED: ONDANSETRON HCL INJ/PF 4 MG/2 ML SDV IV ONE (20:04)
--- NOTE | 2020-05-29 20:07 | ER Document Report ---
ED Medical Screen (RME) - General Chief Complaint: Abdominal Pain Stated Complaint: NAUSEA/VOMITING/ABDOMINAL Time Seen by Provider: 05/29/20 19:58 Primary Care Provider: [facility] [Primary Care Provider] - Follow up as needed Mode of Arrival: Wheelchair Information source: Patient Notes: 59-year-old female presented to ED for continued abdominal pain with nausea and vomiting. She states she was seen on Tuesday and diagnosed with pancreatitis. There is prescribed her pain medications and Phenergan and told to stay on a clear liquid diet. She states she has done this and she is continued having pain nausea and vomiting and now she has diarrhea. She is alert oriented respirations regular nonlabored speaking in full sentences. She does have ac tive bowel sounds tenderness to palpation to the upper abdomen. I have greeted and performed a rapid initial assessment of this patient. A comprehensive ED assessment and evaluation of the patient, analysis of test results and completion of medical decision making process will be conducted by an additional ED providers. TRAVEL OUTSIDE OF THE [place] IN LAST 30 DAYS: No - Related Data Allergies/Adverse Reactions: meloxicam [From Mobic] Allergy (Mild, Verified 05/26/20 11:08) RASH, ITCHING midazolam [From Versed] Adverse Reaction (Severe, Verified 05/26/20 11:08) ALTERED MENTAL STATUS, SHAKING OF EXTREMITIES NSAIDS (Non-Steroidal Anti-Inflamma [Nsaids] Adverse Reaction (Severe, Verified 05/26/20 11:08) STOMACH PAIN Past Medical History - General Information source: Patient - Social History Cigarette use (# per day): Yes - 1/2 pack/day Frequency of alcohol use: Rare Drug Abuse: None Lives with: Family Family history: Reviewed & Not Pertinent - Past Medical History Cardiac Medical History: Reports: Hx Hypercholesterolemia, Hx Hypertension Pulmonary Medical History: Reports: Hx Bronchitis, Hx Pneumonia EENT Medical History: Reports: None Neurological Medical History: Reports: None Endocrine Medical History: Reports: Hx Diabetes Mellitus Type 2 Renal/ Medical History: Reports: None Malignancy Medical History: Reports: None GI Medical History: Reports: Hx Crohn's Disease, Hx Gastritis, Hx Pancreatitis Musculoskeltal Medical History: Reports Hx Arthritis, Reports Hx Musculoskeletal Deformity Skin Medical History: Reports None Psychiatric Medical History: Reports: None Traumatic Medical History: Reports: None Infectious Medical History: Reports: None Past Surgical History: Reports: Hx Appendectomy, Hx Section, Hx Cholecystectomy, Hx Orthopedic Surgery - Immunizations Hx Diphtheria, Pertussis, Tetanus Vaccination: No Physical Exam - Vital signs Vitals: Temp Pulse Resp BP Pulse Ox 97.5 F 114 H 18 84/59 L 99 05/29/20 19:52 05/29/20 19:52 05/29/20 19:52 05/29/20 19:52 05/29/20 19:52 Course - Vital Signs Vital signs: Temp Pulse Resp BP Pulse Ox 97.5 F 114 H 18 84/59 L 99 05/29/20 19:52 05/29/20 19:52 05/29/20 19:52 05/29/20 19:52 05/29/20 19:52 Doctor's Discharge - Discharge Referrals: [facility] [Primary Care Provider] - Follow up as needed
[2020-05-29 20:37] LABS: HEMATOCRIT 44.1 % (36.0-47.0); HEMOGLOBIN 15.9 g/dL (12.0-15.5); MEAN CORPUSCULAR HGB CONC 36.1 g/dL (32.0-36.0); MEAN CORPUSCULAR VOLUME 97 fl (80-97); PLATELET COUNT 685 10^3/uL (150-450); RED BLOOD COUNT 4.54 10^6/uL (3.72-5.28); RED CELL DISTRIBUTION WIDTH 12.1 % (11.5-14.0); WHITE BLOOD COUNT 17.4 10^3/uL (4.0-10.5)
[2020-05-29 20:49] LABS: ALBUMIN 4.2 g/dL (3.5-5.0); ALKALINE PHOSPHATASE 72 U/L (38-126); ANION GAP 19 (5-19); ASPARTATE AMINO TRANSFERASE 20 U/L (14-36); BILIRUBIN,DIRECT 0.3 mg/dL (0.0-0.4); BILIRUBIN,TOTAL 0.6 mg/dL (0.2-1.3); BLOOD UREA NITROGEN 18 mg/dL (7-20); CALCIUM 10.1 mg/dL (8.4-10.2); CARBON DIOXIDE 14 mmol/L (22-30); CHLORIDE 97 mmol/L (98-107); GLUCOSE 113 mg/dL (75-110); POTASSIUM 3.5 mmol/L (3.6-5.0); TOTAL PROTEIN 6.8 g/dL (6.3-8.2)
[2020-05-29 21:14] LABS: ABSOLUTE LYMPHOCYTES# (MANUAL) 3.3 10^3/uL (0.5-4.7); ABSOLUTE MONOCYTES # (MANUAL) 0.7 10^3/uL (0.1-1.4); BAND NEUTROPHILS % (MANUAL) 1 % (3-5); BASOPHILS % (MANUAL) 0 % (0-2); EOSINOPHILS % (MANUAL) 1 % (0-6); LYMPHOCYTES % (MANUAL) 19 % (13-45); METAMYELOCYTES % (MANUAL) 2 % (0-1); MONOCYTES % (MANUAL) 4 % (3-13); MYELOCYTES % (MANUAL) 2 % (0); SEGMENTED NEUTROPHILS % (MAN) 71 % (42-78); TOTAL CELLS COUNTED 100
[2020-05-29 21:16] LABS: PLATELET COMMENT ADEQUATE; RBC MORPHOLOGY COMMENT NORMO-CYTIC/CHROMIC; TOXIC GRANULATION SLIGHT
[2020-05-29] MEDS ORDERED: MORPHINE SULFATE 10 MG/ML INJ IV ONE ×2 (21:22→23:48)
[2020-05-29 21:31] LABS: APPEARANCE,URINE SLIGHTLY-CLOUDY; BILIRUBIN,URINE NEGATIVE (NEGATIVE); COLOR,URINE YELLOW; GLUCOSE, URINE NEGATIVE (NEGATIVE); KETONES,URINE 20 mg/dL (NEGATIVE); LEUKOCYTE ESTERASE,URINE NEGATIVE (NEGATIVE); NITRITE,URINE NEGATIVE (NEGATIVE); PROTEIN,URINE 30 mg/dL (NEGATIVE); URINE SPECIFIC GRAVITY 1.017; UROBILINOGEN,URINE NEGATIVE mg/dL (<2.0)
[2020-05-29] MEDS ORDERED: RINGERS SOLUTION,LACTATED 1,000 ML IV ONE (21:46)
--- NOTE | 2020-05-29 21:59 | ER Document Report ---
ED General - General Chief Complaint: Abdominal Pain Stated Complaint: NAUSEA/VOMITING/ABDOMINAL Time Seen by Provider: 05/29/20 19:58 Mode of Arrival: Wheelchair Notes: 59-year-old female with diabetes and hypertension history of cholecystectomy presents with epigastric abdominal pain for several days. Patient seen in ED day before and diagnosed with pancreatitis and was discharged and patient has been tolerating p.o. at home but says that she is feels lightheaded every time she stands up but does not think she is getting enough fluids and feels extremely nauseous that her pain is still severe. Patient denies vomiting. Patient has been having many episodes of loose nonblack nonbloody stools for past several days. When asked about alcohol consumption patient states "yes, I have two mary alice coladas every year for my birthday." History of Crohn's disease, but not on any meds for it and no complications in the past. patient denies any syncope, trauma, black stool, bloody stool, alcohol use, prior pancreatitis history, right upper quadrant pain TRAVEL OUTSIDE OF THE [place] IN LAST 30 DAYS: No - Related Data Allergies/Adverse Reactions: meloxicam [From Mobic] Allergy (Mild, Verified 05/29/20 20:38) RASH, ITCHING midazolam [From Versed] Adverse Reaction (Severe, Verified 05/29/20 20:38) ALTERED MENTAL STATUS, SHAKING OF EXTREMITIES NSAIDS (Non-Steroidal Anti-Inflamma [Nsaids] Adverse Reaction (Severe, Verified 05/29/20 20:38) STOMACH PAIN Home Medications: metformin, lisinopril, phenergan, percocet, gabapentin, trazadone Past Medical History - General Information source: Patient - Social History Smoking Status: Current Every Day Smoker Cigarette use (# per day): Yes - 1/2 pack/day Frequency of alcohol use: Rare Drug Abuse: None Lives with: Family Family History: Reviewed & Not Pertinent - Past Medical History Cardiac Medical History: Reports: Hx Hypercholesterolemia, Hx Hypertension Pulmonary Medical History: Reports: Hx Bronchitis, Hx Pneumonia EENT Medical History: Reports: None Neurological Medical History: Reports: None Endocrine Medical History: Reports: Hx Diabetes Mellitus Type 2 Renal/ Medical History: Reports: None Malignancy Medical History: Reports: None GI Medical History: Reports: Hx Crohn's Disease, Hx Gastritis, Hx Pancreatitis Musculoskeletal Medical History: Reports Hx Arthritis, Reports Hx Musculo skeletal Deformity Skin Medical History: Reports None Psychiatric Medical History: Reports: None Traumatic Medical History: Reports: None Infectious Medical History: Reports: None Past Surgical History: Reports: Hx Appendectomy, Hx Section, Hx Cholecystectomy, Hx Hysterectomy - partial, Hx Orthopedic Surgery - bilateral carpal tunnel surgery, Hx Tonsillectomy - Immunizations Hx Diphtheria, Pertussis, Tetanus Vaccination: No Review of Systems - Review of Systems Notes: REVIEW OF SYSTEMS: CONSTITUTIONAL : Denies fever, chills, or sweats. EENT: Denies recent cold/sinus symptoms, denies throat pain CARDIOVASCULAR: Denies chest pain, AILIN RESPIRATORY: Denies cough, denies shortness of breath. GASTROINTESTINAL: + abdominal pain, +nausea -vomiting. GENITOURINARY: Denies difficulty urinating, painful urination. MUSCULOSKELETAL: Denies neck pain, back pain. SKIN: Denies rash or skin lesions. HEMATOLOGIC : Denies easy bruising or bleeding. LYMPHATIC: Denies swollen, enlarged glands. NEUROLOGICAL: Denies headache, denies change in gait. PSYCHIATRIC: Denies anxiety or stress or depression. Physical Exam - Vital signs Vitals: Temp Pulse Resp BP Pulse Ox 97.5 F 114 H 18 84/59 L 99 05/29/20 19:52 05/29/20 19:52 05/29/20 19:52 05/29/20 19:52 05/29/20 19:52 - Notes Notes: PHYSICAL EXAMINATION: GENERAL: Well-appearing, well-nourished and in no acute distress. HEAD: Atraumatic, normocephalic. EYES: Pupils equal round and appropriate constriction, sclera anicteric, conjunctiva are normal. ENT: nares patent, dry mucous membranes. NECK: Normal range of motion, supple without lymphadenopathy LUNGS: Breath sounds clear to auscultation bilaterally and equal. No wheezes rales or rhonchi. HEART: Regular rate and rhythm without murmurs ABDOMEN: Soft, no masses, mild epigastric tenderness, no guarding, no rebound EXTREMITIES: Normal range of motion, no pitting or edema. No cyanosis. NEUROLOGICAL: Awake, alert, conversing appropriately, moves all extremities spontaneously. PSYCH: Normal mood, normal affect. SKIN: Warm, Dry, normal turgor, no rashes or lesions noted. Course - Re-evaluation Re-evalutation: 05/29/20 22:02 Patient with continued epigastric pain consistent with mild pancreatitis symptoms. Patient initially tachycardic and mildly hypotensive which resolved with fluids. Mild epigastric tenderness but no acute abdomen at this time. No signs of complications of pancreatitis, no significant electrolyte derangements. Given multiple signs of hypovolemia patient appropriate for observation for c ontinued fluid repletion, pain control, and monitoring for any decompensation. No imaging of the abdomen required at this time however if patient's tenderness should increase, LFTs become abnormal, or if patient becomes unstable at this will need to be reassessed. I have called Dr. Goff to initiate admission. 05/29/20 23:13 Turned over patient to Dr. Goff who has accepted her to medical floor. Patient's exam remains unchanged, pain is returning so will order additional dose of analgesia. - Vital Signs Vital signs: Temp Pulse Resp BP Pulse Ox 98.2 F 80 20 119/71 99 05/30/20 04:41 05/30/20 04:41 05/30/20 04:41 05/30/20 04:41 05/30/20 04:41 - Laboratory Result Diagrams: 05/29/20 20:19 05/30/20 04:32 Laboratory results interpreted by me: 05/29/20 05/29/20 05/29/20 20:19 20:19 21:09 WBC 17.4 H Hgb 15.9 H MCH 35.0 H MCHC 36.1 H Plt Count 685 H Band Neutrophils % 1 L Metamyelocytes % 2 H Myelocytes % 2 H Abs Neuts (Manual) 13.2 H Sodium 130.3 L Potassium 3.5 L Chloride 97 L Carbon Dioxide 14 L Creatinine 1.30 H Est GFR ( Amer) 50 L Est GFR (MDRD) Non-Af 42 L Glucose 113 H Lipase 465.3 H Urine Protein 30 H Urine Ketones 20 H Urine Blood SMALL H - EKG Interpretation by Me Additional EKG results interpreted by me: 05/30/20 06:01 Sinus tachycardia, no significant ST elevations or depressions, no significant T wave abnormalities, QTC prolonged Discharge - Discharge Clinical Impression: Pancreatitis Qualifiers: Chronicity: acute Pancreatitis type: unspecified pancreatitis type Acute pancreatitis complication: unspecified Qualified Code(s): K85.90 - Acute pancreatitis without necrosis or infection, unspecified Disposition: ADMITTED INPATIENT Admitting Provider: [place] (Hospitalist) Unit Admitted: Medical Floor
[2020-05-29 22:03] LABS: PHOSPHORUS 4.1 mg/dL (2.5-4.5)
[2020-05-30] MEDS ORDERED: MAG HYDROX/AL HYDROX/SIMETH SUSP 30 ML UDCUP PO PRN (00:23)
[2020-05-30] MEDS ORDERED: MORPHINE SULFATE 10 MG/ML INJ IV PRN ×4 (00:29→00:52)
[2020-05-30] MEDS ORDERED: MELATONIN 5 MG TABLET PO PRN (00:29)
[2020-05-30] MEDS ORDERED: LORAZEPAM INJ 2 MG/1 ML VIAL IV PRN (00:29)
[2020-05-30] MEDS ORDERED: ACETAMINOPHEN 650 MG SUPP.RECT PR PRN (00:29)
[2020-05-30] MEDS ORDERED: GUAIFENESIN SYRP 200 MG/10 ML UDC PO PRN (00:29)
[2020-05-30] MEDS ORDERED: NICOTINE 21 MG/24 HR PATCH.TD24 TD PRN (00:29)
[2020-05-30] MEDS ORDERED: ACETAMINOPHEN 325 MG TABLET PO PRN (00:29)
[2020-05-30] MEDS ORDERED: GLUCAGON,HUMAN RECOMB 1 MG INJ IM PRN (00:31)
[2020-05-30] MEDS ORDERED: DEXTROSE 50%-WATER 25 GM/50 ML DISP.SYRIN IV PRN ×2 (00:31)
[2020-05-30] MEDS ORDERED: DEXTROSE 40% GEL 15 GM TUBE PO PRN ×2 (00:31)
[2020-05-30] MEDS ORDERED: METHYLPREDNISOLONE INJ 125 MG/2 ML SDV IV ONE (01:00)
[2020-05-30] MEDS: RINGERS SOLUTION,LACTATED 1,000 ML IV PRN ×2 (01:51→05:56)
--- NOTE | 2020-05-30 02:05 | RADIOLOGY REPORT (SQ) ---
EXAM: CT abdomen and pelvis without intravenous contrast CLINICAL DATA: 59 years Female Abdominal pain, history of Crohn's disease TECHNICAL DATA: Axial CT imaging of the abdomen and pelvis was performed without oral or intravenous contrast. Sagittal and coronal reconstructed images were then performed. The CT study is performed according to ALARA (as low as reasonably achievable) or ALARA/IMAGE GENTLY, with automatic adjustment of mA and/or kV according to patient size. Performed on: 05/30/2020 at 1:29 AM Comparison: None. FINDINGS: Lung bases: Lung bases are clear. Liver:The liver is normal in size and configuration. There is a 1 cm focal area of decreased attenuation along the anterior left hepatic lobe adjacent to the falciform ligament which may represent focal fat deposition. No additional focal hepatic abnormalities are identified. Liver attenuation is otherwise within normal limits. Spleen:The spleen is normal is size, configuration and attenuation. No focal splenic abnormalities are appreciated on this unenhanced scan. Gallbladder and bile duct: The gallbladder is surgically absent. There is no biliary ductal dilatation. Pancreas: The pancreas is grossly normal in size and configuration. Adrenal Glands:The adrenal glands are normal in size and configuration. Kidneys:The kidneys are normal in size and configuration. There is no evidence of hydronephrosis. There is no evidence of nephrolithiasis. No focal renal abnormalities are identified. Stomach:The stomach is grossly normal. There is no definite hiatal hernia. Bowel:The bowel gas pattern is non specific and non obstructive. There is a fat halo sign along the cecum and ascending colon which is nonspecific but can be seen with Crohn's disease. There may be very mild colonic wall thickening involving the mid transverse colon. Appendix: The appendix is not well visualized. Free air:There is no evidence of free air. Free fluid: There is no evidence of free fluid. Vasculature: The aorta is normal in caliber and contour. The inferior vena cava is grossly unremarkable. There are mild to moderate atherosclerotic calcifications along the abdominal aorta and iliac arteries. Lymphadenopathy: No pathologic lymphadenopathy is identified. Bladder: The bladder is well distended and smooth in contour. Reproductive: The uterus is surgically absent. Bones: No acute osseous abnormalities are identified. Soft tissues: No focal soft tissue abnormalities are identified. IMPRESSION: 1. No definite acute intra-abdominal or intrapelvic pathology. 2. There appears to be mild colonic wall thickening involving the mid transverse colon which is nonspecific but can be seen with inflammatory bowel disease. Additionally, there is a fat halo sign along the cecum and ascending colon which can be seen with Crohn's disease. 3. Remote cholecystectomy and hysterectomy.
--- NOTE | 2020-05-30 03:26 | PDOC H&P ---
History of Present Illness Admission Date/PCP: 05/29/2020 23:48 [facility] Patient complains of: Abdominal pain History of Present Illness: JULIANA CARRASCO is a 59 year old female who presented to the emergency room with an 8-day history of abdominal pain. She admits the onset of right lower quadrant abdominal pain 8 days ago, gradually migrating to the right upper abdomen and epigastrium, gradually worsening in intensity to have become severe over the last 3 days. Her abdominal pain has been accompanied by 5 days of nausea with vomiting and 3 days of diarrhea. Her abdominal pain has been associated with decreased oral intake, malaise and fatigue. She denies other associated or accompanying signs and symptoms. She admits prior similar episodes with Crohn's disease. She has not identified any aggravating or ameliorating factors for her abdominal pain. She was seen in the emergency room on 05/26/2020 and treated for the same symptoms with no improvement over the course of the last 3 days resulting in her return to the hospital for further treatment. In the emergency room she was found to have a minimally elevated serum lipase and a leukocytosis with clinical evidence of dehydration. She was treated with IV fluids and subsequently admitted to the hospital for further evaluation and treatment having failed outpatient therapy. Just prior to leaving the emergency room to be transported to the floor she had a large bloody diarrhea episode. Past Medical History Cardiac Medical History: Reports: Hyperlipidema, Hypertension Denies: Atrial Fibrillation, Congestive Heart Failure, Coronary Artery Disease, DVT, Myocardial Infarction, Pulmonary Embolism Pulmonary Medical History: Reports: Bronchitis, Pneumonia Denies: Asthma, Chronic Obstructive Pulmonary Disease (COPD) EENT Medical History: Reports: Cataracts Denies: Ears - Hearing aids Neurological Medical History: Denies: Hemorrhagic CVA, Ischemic CVA, Seizures Endocrine Medical History: Reports: Diabetes Mellitus Type 2 Denies: Diabetes Mellitus Type 1, Hyperthyroidism, Hypothyroidism, Obesity Renal/ Medical History: Denies: Chronic Kidney Disease, Nephrolithiasis Malignancy Medical History: Reports: None GI Medical History: Reports: Crohn's Disease, Peptic Ulcer Disease Denies: Cirrhosis, Hepatitis, Ulcerative Colitis Musculoskeltal Medical History: Reports: Arthritis Denies: Fibromyalgia Skin Medical History: Denies: Eczema, Psoriasis Psychiatric Medical History: Reports: Tobacco Dependency Denies: Alcohol Dependency, Substance Abuse Traumatic Medical History: Reports: None Hematology: Denies: Anemia, Bleeding Tendencies Infectious Medical History: Reports: None Past Surgical History Past Surgical History: Reports: Appendectomy, Section, Cholecystectomy, Hysterectomy - partial, Orthopedic Surgery - bilateral carpal tunnel surgery, Tonsillectomy, Other - Colonoscopy with biopsy, bilateral cataracts Social History Information Source: Patient Lives with: Family Smoking Status: Current Every Day Smoker Electronic Cigarette use?: No Frequency of Alcohol Use: Rare Hx Recreational Drug Use: No Drugs: None Hx Prescription Drug Abuse: No - Advance Directive Resuscitation Status: Full Code Surrogate healthcare decision maker:: Yina Carrasco Family History Family History: CAD, COPD, CVA, Hypertension, Malignancy Parental Family History Reviewed: Yes Children Family History Reviewed: No Sibling(s) Family History Reviewed.: Yes Medication/Allergy Home Medications: Lisinopril [Prinivil 10 mg Tablet] 5 mg PO DAILY 08/25/16 Metformin HCl [Metformin HCl ER] 500 mg PO DAILY 08/25/16 Orphenadrine Citrate [Orphenadrine Citrate ER] 100 mg PO DAILYP PRN #7 tablet.er 12/20/17 Amox Tr/Potassium Clavulanate [Augmentin 875-125 Tablet] 1 tab PO BID 10 Days #24 tablet 08/18/19 Tramadol HCl [Ultram 50 mg Tablet] 50 mg PO BIDP PRN #10 tablet 08/18/19 Oxycodone HCl/Acetaminophen [Percocet 5-325 mg Tablet] 1 - 2 tab PO Q4H PRN #15 tablet 05/26/20 Allergies/Adverse Reactions: meloxicam [From Mobic] Allergy (Mild, Verified 05/29/20 20:38) RASH, ITCHING midazolam [From Versed] Adverse Reaction (Severe, Verified 05/29/20 20:38) ALTERED MENTAL STATUS, SHAKING OF EXTREMITIES NSAIDS (Non-Steroidal Anti-Inflamma [Nsaids] Adverse Reaction (Severe, Verified 05/29/20 20:38) STOMACH PAIN Review of Systems Constitutional: PRESENT: as per HPI, anorexia - Decreased oral intake, fatigue, other - Malaise. ABSENT: chills, fever(s) Eyes: ABSENT: visual disturbances, other - Eye pain Ears: ABSENT: hearing changes, other - Ear pain Nose, Mouth, and Throat: ABSENT: headache(s), sore throat Cardiovascular: ABSENT: chest pain, palpitations Respiratory: ABSENT: cough, dyspnea Gastrointestinal: PRESENT: as per HPI, abdominal pain, diarrhea, nausea, vomiting. ABSENT: constipation, hematemesis, hematochezia, melena Genitourinary: ABSENT: dysuria, hematuria Musculoskeletal: ABSENT: joint swelling, muscle weakness Integumentary: ABSENT: pruritus, rash Neurological: ABSENT: confusion, convulsions, focal weakness, memory loss, syncope Psychiatric: ABSENT: anxiety, depression Endocrine: ABSENT: cold intolerance, heat intolerance Hematologic/Lymphatic: ABSENT: easy bleeding, easy bruising Allergic/Immunologic: ABSENT: seasonal rhinorrhea Physical Exam Vital Signs: Temp Pulse Resp BP Pulse Ox 97.5 F 114 H 16 121/73 100 05/29/20 19:52 05/29/20 20:09 05/29/20 21:10 05/29/20 21:10 05/29/20 21:10 Intake & Output 05/27/20 05/28/20 05/29/20 23:59 23:59 23:59 Intake Total 1999 Balance 1999 Weight 61.689 kg General appearance: PRESENT: cooperative, mild distress - Secondary to abdominal pain Head exam: PRESENT: atraumatic, normocephalic Eye exam: PRESENT: conjunctiva pink. ABSENT: conjunctival injection, scleral icterus Ear exam: PRESENT: normal external ear exam. ABSENT: bleeding, drainage Mouth exam: PRESENT: dry mucosa, neck supple Neck exam: ABSENT: thyromegaly, tracheal deviation Respiratory exam: PRESENT: clear to auscultation kedar, symmetrical, unlabored Cardiovascular exam: PRESENT: RRR. ABSENT: clicks, gallop, rubs Pulses: PRESENT: normal radial pulses, normal dorsalis pedis pul Vascular exam: PRESENT: normal capillary refill. ABSENT: pallor GI/Abdominal exam: PRESENT: hypoactive bowel sounds, soft, tenderness - Moderate right upper quadrant and epigastric tenderness to palpation without point localization Rectal exam: PRESENT: deferred Extremities exam: ABSENT: joint swelling, pedal edema Musculoskeletal exam: ABSENT: dislocation, tenderness Neurological exam: PRESENT: alert, oriented to person, oriented to place, oriented to time, oriented to situation, CN II-XII grossly intact. ABSENT: motor sensory deficit Psychiatric exam: PRESENT: appropriate affect, normal mood Skin exam: PRESENT: dry, intact, warm. ABSENT: jaundice, rash, urticaria Results Laboratory Results: 05/29/20 20:19 05/29/20 20:19 05/29/20 05/29/20 05/29/20 20:19 20:19 20:19 WBC 17.4 H RBC 4.54 Hgb 15.9 H Hct 44.1 MCV 97 MCH 35.0 H MCHC 36.1 H RDW 12.1 Plt Count 685 H Seg Neutrophils % Not Reportable Sodium 130.3 L Potassium 3.5 L Chloride 97 L Carbon Dioxide 14 L Anion Gap 19 BUN 18 Creatinine 1.30 H Est GFR ( Amer) 50 L Glucose 113 H Calcium 10.1 Phosphorus 4.1 Magnesium 1.6 Total Bilirubin 0.6 AST 20 Alkaline Phosphatase 72 Total Protein 6.8 Albumin 4.2 Lipase 465.3 H Urine Color Urine Appearance Urine pH Ur Specific [place] Urine Protein Urine Glucose (UA) Urine Ketones Urine Blood Urine Nitrite Ur Leukocyte Esterase Urine WBC (Auto) Urine RBC (Auto) 05/29/20 21:09 WBC RBC Hgb Hct MCV MCH MCHC RDW Plt Count Seg Neutrophils % Sodium Potassium Chloride Carbon Dioxide Anion Gap BUN Creatinine Est GFR ( Amer) Glucose Calcium Phosphorus Magnesium Total Bilirubin AST Alkaline Phosphatase Total Protein Albumin Lipase Urine Color YELLOW Urine Appearance SLIGHTLY-CLOUDY Urine pH 5.0 Ur Specific [place] 1.017 Urine Protein 30 H Urine Glucose (UA) NEGATIVE Urine Ketones 20 H Urine Blood SMALL H Urine Nitrite NEGATIVE Ur Leukocyte Esterase NEGATIVE Urine WBC (Auto) 6 Urine RBC (Auto) 1 Assessment and Plan - Diagnosis (1) Epigastric abdominal pain Is this a current diagnosis for this admission?: Yes (2) Nausea with vomiting Qualifiers: Vomiting type: unspecified Vomiting Intractability: non-intractable Qualified Code(s): R11.2 - Nausea with vomiting, unspecified Is this a current diagnosis for this admission?: Yes (3) Diarrhea Qualifiers: Diarrhea type: unspecified type Qualified Code(s): R19.7 - Diarrhea, unspecified Is this a current diagnosis for this admission?: Yes (4) Hypovolemia due to dehydration Is this a current diagnosis for this admission?: Yes (5) Leukocytosis Qualifiers: Leukocytosis type: unspecified Qualified Code(s): D72.829 - Elevated white blood cell count, unspecified Is this a current diagnosis for this admission?: Yes (6) Serum lipase elevation Is this a current diagnosis for this admission?: Yes (7) Crohn's disease Qualifiers: Gastrointestinal tract location: large intestine Digestive disease complication type: with rectal bleeding Qualified Code(s): K50.111 - Crohn's disease of large intestine with rectal bleeding Is this a current diagnosis for this admission?: Yes (8) Diabetes mellitus type 2 in nonobese Is this a current diagnosis for this admission?: Yes (9) Essential hypertension Is this a current diagnosis for this admission?: Yes (10) Tobacco use disorder, continuous Is this a current diagnosis for this admission?: Yes - Plan Summary Summary: Patient will be admitted to the medical floor where she will receive routine supportive and symptomatic cares. A stat CT of the abdomen and a serum amylase level will be obtained. She will receive morphine sulfate 2 to 4 mg IV every 2 hours as needed for pain. She will receive Ativan 1 mg IV every 4 hours as needed for anxiety or restlessness. She will receive Solu-Medrol 125 mg IV x1 with ongoing Solu-Medrol 40 mg IV daily. She will receive IV fluids utilizing lactated Ringer solution at 250 mL/h. She will be maintained on a clear liquid diet with diabetic and cardiac restrictions. CBCs, metabolic profiles and additional laboratory and/or radiographic evaluations will be obtained as needed. Before meals and at bedtime Accu-Cheks to be obtained with sliding scale insulin for hyperglycemia and a hypoglycemic protocol in place. Smoking cessation is advised and counseled briefly at the bedside. A nicotine replacement patch will be available for the patient's use, if desired. - Time Time Spent with patient: 15-24 minutes Smoking Cessation Education: 3 to 10 minutes Medications reviewed and adjusted accordingly: Yes Anticipated Discharge Disposition: Home, Self Care Anticipated Discharge Timeframe: within 72 hours - Inpatient Certification Based on my medical assessment, after consideration of the patient's comorbidities, presenting symptoms, or acuity I expect that the services needed warrant INPATIENT care.: Yes I certify that my determination is in accordance with my understanding of Medicare's requirements for reasonable and necessary INPATIENT services [42 CFR 412.3e].: Yes Medical Necessity: Failure to Improve With Outpatient Therapy, Need Close Monitoring Due to Risk of Patient Decompensation, Need For IV Fluids, Need for Pain Control, Risk of Complication if Not Cared For in Hospital
[2020-05-30] MEDS: HEPARIN SOD (PORCINE) 5,000 UNIT/ML 1 ML VIAL SUBCUT SCH ×3 (05:19→21:13)
[2020-05-30 05:29] LABS: HEMATOCRIT 37.3 % (36.0-47.0); MEAN CORPUSCULAR HEMOGLOBIN 35.4 pg (27.0-33.4); MEAN CORPUSCULAR HGB CONC 36.6 g/dL (32.0-36.0); MEAN CORPUSCULAR VOLUME 97 fl (80-97); PLATELET COUNT 522 10^3/uL (150-450); RED BLOOD COUNT 3.85 10^6/uL (3.72-5.28); RED CELL DISTRIBUTION WIDTH 11.8 % (11.5-14.0); WHITE BLOOD COUNT 17.4 10^3/uL (4.0-10.5)
[2020-05-30 05:35] LABS: ANION GAP 11 (5-19); BLOOD UREA NITROGEN 12 mg/dL (7-20); CALCIUM 9.5 mg/dL (8.4-10.2); CARBON DIOXIDE 18 mmol/L (22-30); CHLORIDE 104 mmol/L (98-107); CHOLESTEROL 108.39 mg/dL (0-200); GLUCOSE 153 mg/dL (75-110); POTASSIUM 3.6 mmol/L (3.6-5.0); TRIGLYCERIDES 228 mg/dL (<150)
[2020-05-30 05:44] LABS: VLDL CHOLESTEROL 45.6 mg/dL (10-31)
[2020-05-30 05:46] LABS: DIRECT LDL 33 mg/dL (<100)
[2020-05-30 06:02] LABS: HEMOGLOBIN 13.6 g/dL (12.0-15.5)
[2020-05-30 06:09] LABS: ABSOLUTE LYMPHOCYTES# (MANUAL) 1.2 10^3/uL (0.5-4.7); ABSOLUTE MONOCYTES # (MANUAL) 0.5 10^3/uL (0.1-1.4); BAND NEUTROPHILS % (MANUAL) 2 % (3-5); BASOPHILS % (MANUAL) 0 % (0-2); EOSINOPHILS % (MANUAL) 0 % (0-6); LYMPHOCYTES % (MANUAL) 7 % (13-45); METAMYELOCYTES % (MANUAL) 2 % (0-1); MONOCYTES % (MANUAL) 3 % (3-13); SEGMENTED NEUTROPHILS % (MAN) 85 % (42-78); TOTAL CELLS COUNTED 100
[2020-05-30 06:10] LABS: PLATELET COMMENT INCREASED; RBC MORPHOLOGY COMMENT NORMO-CYTIC/CHROMIC
[2020-05-30 06:14] LABS: MYELOCYTES % (MANUAL) 1 % (0)
--- NOTE | 2020-05-30 08:52 | EKG REPORT ---
SEVERITY:- BORDERLINE ECG - SINUS TACHYCARDIA RIGHT AXIS DEVIATION BORDERLINE PROLONGED QT INTERVAL : Confirmed by: Ghassan Rich MD 30-May-2020 08:51:13
[2020-05-30] MEDS: ONDANSETRON HCL INJ/PF 4 MG/2 ML SDV IV PRN ×4 (09:01→23:01)
[2020-05-30] MEDS: INSULIN REG, HUMAN 100 UNIT/ML 3 ML VIAL (PYX) SUBCUT SCH ×3 (09:06→17:47)
[2020-05-30 09:32] LABS: C DIFFICILE GDH NEGATIVE (NEGATIVE)
[2020-05-30 10:35] LABS: PATH REVIEW PATHOLOGIST REVIEWED
[2020-05-30 10:39] LABS: PATH REVIEW PATHOLOGIST REVIEWED
[2020-05-30] MEDS: METHYLPREDNISOLONE INJ 40 MG/1 ML SDV IV SCH ×2 (11:19→17:47)
[2020-05-30] MEDS: DOCUSATE SODIUM 100 MG/10 ML UDC PO SCH ×2 (11:19→17:35)
[2020-05-30] MEDS: FAMOTIDINE INJ/PF 20 MG/2 ML SDV IV SCH ×2 (11:19→21:13)
[2020-05-30] MEDS: NICOTINE 14 MG/24 HR PATCH.TD24 TD SCH (13:27)
[2020-05-30] MEDS: NORMAL SALINE 1000 ML 1,000 ML IV PRN (17:48)
[2020-05-30] MEDS: HYDROCODONE/ACETAMINOPHEN 5-325 MG TABLET PO PRN ×2 (17:48→23:01)
--- NOTE | 2020-05-30 20:47 | PDOC PROGRESS REPORT ---
Subjective Progress Note for:: 05/30/20 Subjective:: JULIANA CARRASCO is a 59 year old female who presented to the emergency room with an 8-day history of abdominal pain. She admits the onset of right lower quadrant abdominal pain 8 days ago, gradually migrating to the right upper abdomen and epigastrium, gradually worsening in intensity to have become severe over the last 3 days. Her abdominal pain has been accompanied by 5 days of nausea with vomiting and 3 days of diarrhea. Her abdominal pain has been associated with decreased oral intake, malaise and fatigue. She denies other associated or accompanying signs and symptoms. She admits prior similar episodes with Crohn's disease. She has not identified any aggravating or ameliorating factors for her abdominal pain. She was seen in the emergency room on 05/26/2020 and treated for the same symptoms with no improvement over the course of the last 3 days resulting in her return to the hospital for further treatment. In the emergency room she was found to have a minimally elevated serum lipase and a leukocytosis with clinical evidence of dehydration. She was treated with IV fluids and subsequently admitted to the hospital for further evaluation and treatment having failed outpatient therapy. Just prior to leaving the emergency room to be transported to the floor she had a large bloody diarrhea episode. 05/30/20. She was seen and examined at bedside. She still complains of abdominal pain right lower quadrant area but says it is much less compared to when she came in. Diarrhea has improved, no further episodes of bloody bowel movement she also stated that she was first diagnosed with Crohn's disease when she was 17 years old and has received multiple unrecalled medications since that time but her Crohn's disease has not flared for the past couple of years. She does not regularly follow with a development representative and does not remember the last time she got a colonoscopy. She had some concerns about getting insulin for her diabetes and was insisting that she gets put back on Metformin. I explained to her the reason why we do not generally give Metformin inpatient. She is currently on methylprednisolone. Reason For Visit: EPIGASTRIC ABDOMINAL PAIN,ELEVATED LIPASE,NAUSEA W Physical Exam Vital Signs: Temp Pulse Resp BP Pulse Ox 98.1 F 95 15 138/67 H 98 05/30/20 15:36 05/30/20 15:36 05/30/20 15:36 05/30/20 15:36 10/30/20 15:36 Intake & Output 05/29/20 05/30/20 05/31/20 06:59 06:59 06:59 Intake Total 3240 1000 Balance 3240 1000 Weight 61 kg 61 kg General appearance: PRESENT: no acute distress, cooperative Head exam: PRESENT: atraumatic, normocephalic Eye exam: PRESENT: EOMI, PERRLA Mouth exam: PRESENT: moist Neck exam: PRESENT: full ROM Respiratory exam: PRESENT: clear to auscultation kedar, symmetrical, unlabored Cardiovascular exam: PRESENT: RRR, +S1, +S2 GI/Abdominal exam: PRESENT: normal bowel sounds, soft, tenderness - Right lower quadrant Rectal exam: PRESENT: bloody stool Extremities exam: PRESENT: full ROM Musculoskeletal exam: PRESENT: full ROM Neurological exam: PRESENT: alert, awake, oriented to person, oriented to place, oriented to time, oriented to situation Psychiatric exam: PRESENT: anxious, appropriate affect Skin exam: PRESENT: normal color Results Laboratory Results: 05/30/20 04:32 05/30/20 04:32 05/29/20 05/29/20 05/29/20 20:19 20:19 20:19 WBC 17.4 H RBC 4.54 Hgb 15.9 H Hct 44.1 MCV 97 MCH 35.0 H MCHC 36.1 H RDW 12.1 Plt Count 685 H Seg Neutrophils % Not Reportable Sodium 130.3 L Potassium 3.5 L Chloride 97 L Carbon Dioxide 14 L Anion Gap 19 BUN 18 Creatinine 1.30 H Est GFR ( Amer) 50 L Glucose 113 H Calcium 10.1 Phosphorus 4.1 Magnesium 1.6 Total Bilirubin 0.6 AST 20 Alkaline Phosphatase 72 Total Protein 6.8 Albumin 4.2 Triglycerides Cholesterol LDL Cholesterol Direct VLDL Cholesterol HDL Cholesterol Amylase Lipase 465.3 H TSH Urine Color Urine Appearance Urine pH Ur Specific [place] Urine Protein Urine Glucose (UA) Urine Ketones Urine Blood Urine Nitrite Ur Leukocyte Esterase Urine WBC (Auto) Urine RBC (Auto) Stool Occult Blood 05/29/20 05/29/20 05/30/20 21:09 22:32 04:32 WBC 17.4 H RBC 3.85 Hgb 13.6 D Hct 37.3 MCV 97 MCH 35.4 H MCHC 36.6 H RDW 11.8 Plt Count 522 H Seg Neutrophils % Not Reportable Sodium Potassium Chloride Carbon Dioxide Anion Gap BUN Creatinine Est GFR ( Amer) Glucose Calcium Phosphorus Magnesium Total Bilirubin AST Alkaline Phosphatase Total Protein Albumin Triglycerides Cholesterol LDL Cholesterol Direct VLDL Cholesterol HDL Cholesterol Amylase 92 Lipase TSH Urine Color YELLOW Urine Appearance SLIGHTLY-CLOUDY Urine pH 5.0 Ur Specific [place] 1.017 Urine Protein 30 H Urine Glucose (UA) NEGATIVE Urine Ketones 20 H Urine Blood SMALL H Urine Nitrite NEGATIVE Ur Leukocyte Esterase NEGATIVE Urine WBC (Auto) 6 Urine RBC (Auto) 1 Stool Occult Blood 05/30/20 05/30/20 05/30/20 04:32 04:32 07:30 WBC RBC Hgb Hct MCV MCH MCHC RDW Plt Count Seg Neutrophils % Sodium 133.3 L Potassium 3.6 Chloride 104 Carbon Dioxide 18 L Anion Gap 11 BUN 12 Creatinine 0.65 Est GFR ( Amer) > 60 Glucose 153 H Calcium 9.5 Phosphorus Magnesium 1.5 L Total Bilirubin AST Alkaline Phosphatase Total Protein Albumin Triglycerides 228 H Cholesterol 108.39 LDL Cholesterol Direct 33 VLDL Cholesterol 45.6 H HDL Cholesterol 36 L Amylase Lipase TSH 0.65 Urine Color Urine Appearance Urine pH Ur Specific [place] Urine Protein Urine Glucose (UA) Urine Ketones Urine Blood Urine Nitrite Ur Leukocyte Esterase Urine WBC (Auto) Urine RBC (Auto) Stool Occult Blood POSITIVE Impressions: Abdomen/Pelvis CT 05/30/20 00:00 IMPRESSION: 1. No definite acute intra-abdominal or intrapelvic pathology. 2. There appears to be mild colonic wall thickening involving the mid transverse colon which is nonspecific but can be seen with inflammatory bowel disease. Additionally, there is a fat halo sign along the cecum and ascending colon which can be seen with Crohn's disease. 3. Remote cholecystectomy and hysterectomy. Assessment and Plan - Diagnosis (1) Crohn's disease Qualifiers: Gastrointestinal tract location: large intestine Digestive disease complication type: with rectal bleeding Qualified Code(s): K50.111 - Crohn's disease of large intestine with rectal bleeding Is this a current diagnosis for this admission?: Yes Plan: -Came in due to 1 week history of abdominal pain right lower quadrant with nausea vomiting anorexia is 5-10 episodes of diarrhea per day Denied any fever oral lesions arthritis or arthralgia -History of Crohn's disease diagnosed when he she was 17 received multiple treatments for it currently not on any medications for Crohn's -WBC 17.4 -CT abdomen mild colonic wall thickening involving the mid transverse colon which is nonspecific but can be seen with inflammatory bowel disease. Additionally there is a fat halo sign along the cecum and ascending colon which can be seen with Crohn's disease. - CDAI (Crohn's disease activity Index) 339 -Please on methylprednisolone 40 mg IV every 8 -Switch to prednisone 40 mg/day for 1 week then gradually taper over 1 to 2 months as an outpatient -She will need a GI follow-up (2) Diarrhea Qualifiers: Diarrhea type: unspecified type Qualified Code(s): R19.7 - Diarrhea, unspecified Is this a current diagnosis for this admission?: Yes Plan: -Secondary to Crohn's disease -We will continue IV hydration and start loperamide tomorrow if still persistent (3) Hematochezia Is this a current diagnosis for this admission?: Yes Plan: -Secondary to Crohn's disease -Hemoglobin stable 13.6 -We will continue to monitor for now (4) Diabetes mellitus type 2 in nonobese Is this a current diagnosis for this admission?: Yes Plan: -On Metformin extended release in the outpatient -Will hold during this admission -Long-acting insulin. Patient is very hesitant to be given short acting insulin with meals -Accu-Chek -Glycemia protocol (5) Leukocytosis Qualifiers: Leukocytosis type: unspecified Qualified Code(s): D72.829 - Elevated white blood cell count, unspecified Is this a current diagnosis for this admission?: Yes Plan: -Likely secondary to Crohn's flare and steroid use -Febrile no abscess on CT scan -Hold off on antibiotics (6) Tobacco abuse Is this a current diagnosis for this admission?: Yes Plan: Counseling done -Nicotine patch ordered - Plan Summary Summary: . - Time Time Spent with patient: 25-34 minutes Anticipated Discharge Disposition: Home, Self Care Anticipated Discharge Timeframe: within 48 hours
[2020-05-30] MEDS: INSULIN GLARGINE,HUM.REC.ANLOG 1,000 UNIT/10 ML VIAL SUBCUT SCH (21:19)
[2020-05-31] MEDS: METHYLPREDNISOLONE INJ 40 MG/1 ML SDV IV SCH ×3 (01:49→17:36)
[2020-05-31] MEDS: NORMAL SALINE 1000 ML 1,000 ML IV PRN ×2 (03:17→14:32)
[2020-05-31] MEDS: HEPARIN SOD (PORCINE) 5,000 UNIT/ML 1 ML VIAL SUBCUT SCH ×3 (06:05→21:41)
[2020-05-31] MEDS ORDERED: METHYLPREDNISOLONE INJ 40 MG/1 ML SDV IV SCH (08:00)
[2020-05-31 08:28] LABS: HEMATOCRIT 33.9 % (36.0-47.0); HEMOGLOBIN 12.3 g/dL (12.0-15.5); MEAN CORPUSCULAR HGB CONC 36.2 g/dL (32.0-36.0); MEAN CORPUSCULAR VOLUME 97 fl (80-97); PLATELET COUNT 530 10^3/uL (150-450); RED BLOOD COUNT 3.51 10^6/uL (3.72-5.28); WHITE BLOOD COUNT 16.8 10^3/uL (4.0-10.5)
[2020-05-31 08:39] LABS: AMYLASE 86 U/L (30-110); ANION GAP 11 (5-19); BLOOD UREA NITROGEN 9 mg/dL (7-20); C-REACTIVE PROTEIN 22.3 mg/L (<10.0); CALCIUM 9.4 mg/dL (8.4-10.2); CARBON DIOXIDE 22 mmol/L (22-30); CHLORIDE 108 mmol/L (98-107); GLUCOSE 145 mg/dL (75-110); POTASSIUM 4.5 mmol/L (3.6-5.0)
[2020-05-31] MEDS: HYDROCODONE/ACETAMINOPHEN 5-325 MG TABLET PO PRN ×4 (08:40→22:11)
[2020-05-31] MEDS: ONDANSETRON HCL INJ/PF 4 MG/2 ML SDV IV PRN ×4 (08:40→22:11)
[2020-05-31 08:55] LABS: ABSOLUTE LYMPHOCYTES# (MANUAL) 1.7 10^3/uL (0.5-4.7); ABSOLUTE MONOCYTES # (MANUAL) 0.5 10^3/uL (0.1-1.4); BASOPHILS % (MANUAL) 0 % (0-2); EOSINOPHILS % (MANUAL) 0 % (0-6); LYMPHOCYTES % (MANUAL) 10 % (13-45); MONOCYTES % (MANUAL) 3 % (3-13); SEGMENTED NEUTROPHILS % (MAN) 87 % (42-78); TOTAL CELLS COUNTED 100
[2020-05-31 08:58] LABS: PLATELET COMMENT ADEQUATE; RBC MORPHOLOGY COMMENT NORMO-CYTIC/CHROMIC
[2020-05-31] MEDS: DOCUSATE SODIUM 100 MG/10 ML UDC PO SCH ×2 (12:03→17:36)
[2020-05-31] MEDS: NICOTINE 14 MG/24 HR PATCH.TD24 TD SCH (12:04)
[2020-05-31] MEDS: FAMOTIDINE INJ/PF 20 MG/2 ML SDV IV SCH ×2 (12:07→22:11)
[2020-05-31] MEDS: LISINOPRIL 10 MG TABLET PO SCH (12:09)
[2020-05-31] MEDS: MULTIVITAMIN TABLET PO SCH (12:10)
[2020-05-31] MEDS: CHOLECALCIFEROL (D3) 1,000 UNIT (25 MCG) TABLET PO SCH (12:10)
[2020-05-31] MEDS ORDERED: MAGNESIUM OXIDE 400 MG TABLET PO ONE ×2 (14:48→18:30)
--- NOTE | 2020-05-31 14:57 | PDOC PROGRESS REPORT ---
Subjective Progress Note for:: 05/31/20 Subjective:: JULIANA CARRASCO is a 59 year old female who presented to the emergency room with an 8-day history of abdominal pain. She admits the onset of right lower quadrant abdominal pain 8 days ago, gradually migrating to the right upper abdomen and epigastrium, gradually worsening in intensity to have become severe over the last 3 days. Her abdominal pain has been accompanied by 5 days of nausea with vomiting and 3 days of diarrhea. Her abdominal pain has been associated with decreased oral intake, malaise and fatigue. She denies other associated or accompanying signs and symptoms. She admits prior similar episodes with Crohn's disease. She has not identified any aggravating or ameliorating factors for her abdominal pain. She was seen in the emergency room on 05/26/2020 and treated for the same symptoms with no improvement over the course of the last 3 days resulting in her return to the hospital for further treatment. In the emergency room she was found to have a minimally elevated serum lipase and a leukocytosis with clinical evidence of dehydration. She was treated with IV fluids and subsequently admitted to the hospital for further evaluation and treatment having failed outpatient therapy. Just prior to leaving the emergency room to be transported to the floor she had a large bloody diarrhea episode. 05/30/20. She was seen and examined at bedside. She still complains of abdominal pain right lower quadrant area but says it is much less compared to when she came in. Diarrhea has improved, no further episodes of bloody bowel movement she also stated that she was first diagnosed with Crohn's disease when she was 17 years old and has received multiple unrecalled medications since that time but her Crohn's disease has not flared for the past couple of years. 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 She had some concerns about getting insulin for her diabetes and was insisting that she gets put back on Metformin. I explained to her the reason why we do not generally give Metformin inpatient. She is currently on methylprednisolone. 05/31/20. She was seen and examined at bedside. Had about 7 episodes of watery so semi formed stool minimal blood. Abdominal pain is better compared to yesterday. No nausea/vomiting and she is tolerating her regular diet. No other concern at this time. Reason For Visit: EPIGASTRIC ABDOMINAL PAIN,ELEVATED LIPASE,NAUSEA W Physical Exam Vital Signs: Temp Pulse Resp BP Pulse Ox 98.4 F 77 18 130/71 H 100 05/31/20 11:17 05/31/20 11:17 05/31/20 11:17 05/31/20 11:17 05/31/20 11:17 Intake & Output 05/30/20 05/31/20 06/01/20 06:59 06:59 05:59 Intake Total 3240 1948 1000 Balance 3240 1948 1000 Weight 61 kg 61.5 kg Results Laboratory Results: 05/31/20 07:20 05/31/20 07:20 05/31/20 05/31/20 07:20 07:20 WBC 16.8 H RBC 3.51 L Hgb 12.3 Hct 33.9 L MCV 97 MCH 35.0 H MCHC 36.2 H RDW 12.0 Plt Count 530 H Seg Neutrophils % Not Reportable Sodium 140.9 Potassium 4.5 Chloride 108 H Carbon Dioxide 22 Anion Gap 11 BUN 9 Creatinine 0.57 Est GFR ( Amer) > 60 Glucose 145 H Calcium 9.4 Magnesium 1.5 L C-Reactive Protein 22.3 H Amylase 86 Lipase 395.8 H Impressions: Abdomen/Pelvis CT 05/30/20 00:00 IMPRESSION: 1. No definite acute intra-abdominal or intrapelvic pathology. 2. There appears to be mild colonic wall thickening involving the mid transverse colon which is nonspecific but can be seen with inflammatory bowel disease. Additionally, there is a fat halo sign along the cecum and ascending colon which can be seen with Crohn's disease. 3. Remote cholecystectomy and hysterectomy. Assessment and Plan - Diagnosis (1) Crohn's disease Qualifiers: Gastrointestinal tract location: large intestine Digestive disease complication type: with rectal bleeding Qualified Code(s): K50.111 - Crohn's disease of large intestine with rectal bleeding Is this a current diagnosis for this admission?: Yes Plan: -Came in due to 1 week history of abdominal pain right lower quadrant with nausea vomiting anorexia is 5-10 episodes of diarrhea per day Denied any fever oral lesions arthritis or arthralgia -History of Crohn's disease diagnosed when he she was 17 received multiple treatments for it currently not on any medications for Crohn's -WBC 17.4>16.9 -CT abdomen mild colonic wall thickening involving the mid transverse colon which is nonspecific but can be seen with inflammatory bowel disease. Additionally there is a fat halo sign along the cecum and ascending colon which can be seen with Crohn's disease. - C. diff pending - CDAI (Crohn's disease activity Index) 339 - on methylprednisolone 40 mg IV every 8 - loperamide for diarrhea -will Switch to prednisone 40 mg/day for 1 week then gradually taper over 1 to 2 months as an outpatient -She will need a GI follow-up (2) Diarrhea Qualifiers: Diarrhea type: unspecified type Qualified Code(s): R19.7 - Diarrhea, unspecified Is this a current diagnosis for this admission?: Yes Plan: -Secondary to Crohn's disease -We will continue IV hydration and start loperamide (3) Hematochezia Is this a current diagnosis for this admission?: Yes Plan: -Secondary to Crohn's disease -Hemoglobin stable 13.6 -We will continue to monitor for now (4) Diabetes mellitus type 2 in nonobese Is this a current diagnosis for this admission?: Yes Plan: -On Metformin extended release in the outpatient -Will hold during this admission -Long-acting insulin. Patient is very hesitant to be given short acting insulin with meals -Accu-Chek -Glycemia protocol (5) Leukocytosis Qualifiers: Leukocytosis type: unspecified Qualified Code(s): D72.829 - Elevated white blood cell count, unspecified Is this a current diagnosis for this admission?: Yes Plan: -Likely secondary to Crohn's flare and steroid use -Febrile no abscess on CT scan -Hold off on antibiotics (6) Tobacco abuse Is this a current diagnosis for this admission?: Yes Plan: Counseling done -Nicotine patch ordered - Plan Summary Summary: . - Time Time Spent with patient: 25-34 minutes Anticipated Discharge Disposition: Home, Self Care Anticipated Discharge Timeframe: within 48 hours
[2020-05-31] MEDS: LOPERAMIDE HCL 2 MG CAPSULE PO PRN (18:21)
[2020-05-31 20:01] LABS: C DIFFICILE GDH NEGATIVE (NEGATIVE)
[2020-05-31] MEDS: INSULIN GLARGINE,HUM.REC.ANLOG 1,000 UNIT/10 ML VIAL SUBCUT SCH (23:06)
[2020-05-31] MEDS: GABAPENTIN 300 MG CAPSULE PO SCH (23:46)
[2020-05-31] MEDS: TRAZODONE HCL 50 MG TABLET PO SCH (23:47)
[2020-06-01] MEDS: METHYLPREDNISOLONE INJ 40 MG/1 ML SDV IV SCH ×2 (01:02→10:16)
[2020-06-01] MEDS: NORMAL SALINE 1000 ML 1,000 ML IV PRN ×2 (01:09→13:26)
[2020-06-01] MEDS: HYDROCODONE/ACETAMINOPHEN 5-325 MG TABLET PO PRN ×3 (02:11→10:34)
[2020-06-01] MEDS: ONDANSETRON HCL INJ/PF 4 MG/2 ML SDV IV PRN ×5 (02:11→23:06)
[2020-06-01 04:31] LABS: HEMATOCRIT 32.1 % (36.0-47.0); HEMOGLOBIN 11.5 g/dL (12.0-15.5); MEAN CORPUSCULAR HGB CONC 35.7 g/dL (32.0-36.0); MEAN CORPUSCULAR VOLUME 98 fl (80-97); PLATELET COUNT 496 10^3/uL (150-450); RED BLOOD COUNT 3.28 10^6/uL (3.72-5.28); RED CELL DISTRIBUTION WIDTH 12.3 % (11.5-14.0); WHITE BLOOD COUNT 15.6 10^3/uL (4.0-10.5)
[2020-06-01 05:00] LABS: ABSOLUTE LYMPHOCYTES# (MANUAL) 0.8 10^3/uL (0.5-4.7); ABSOLUTE MONOCYTES # (MANUAL) 1.1 10^3/uL (0.1-1.4); BASOPHILS % (MANUAL) 0 % (0-2); EOSINOPHILS % (MANUAL) 0 % (0-6); LYMPHOCYTES % (MANUAL) 5 % (13-45); MONOCYTES % (MANUAL) 7 % (3-13); PLATELET COMMENT INCREASED; SEGMENTED NEUTROPHILS % (MAN) 88 % (42-78); TOTAL CELLS COUNTED 100
[2020-06-01 05:02] LABS: POLYCHROMASIA SLIGHT
[2020-06-01] MEDS: HEPARIN SOD (PORCINE) 5,000 UNIT/ML 1 ML VIAL SUBCUT SCH ×3 (05:21→22:00)
[2020-06-01 06:01] LABS: AMYLASE 88 U/L (30-110); ANION GAP 10 (5-19); BLOOD UREA NITROGEN 12 mg/dL (7-20); CALCIUM 8.6 mg/dL (8.4-10.2); CARBON DIOXIDE 20 mmol/L (22-30); CHLORIDE 110 mmol/L (98-107); GLUCOSE 140 mg/dL (75-110)
[2020-06-01 06:15] LABS: POTASSIUM 3.4 mmol/L (3.6-5.0)
[2020-06-01] MEDS ORDERED: POTASSIUM CHLORIDE 20 MEQ PACKET PO ONE (07:52)
[2020-06-01] MEDS: MAGNESIUM SULFATE/D5W 1 GM/100 ML RTUPB IV SCH ×4 (08:40→21:54)
[2020-06-01] MEDS: LOPERAMIDE HCL 2 MG CAPSULE PO PRN ×2 (08:48→16:16)
[2020-06-01] MEDS: DOCUSATE SODIUM 100 MG/10 ML UDC PO SCH ×2 (10:10→17:02)
[2020-06-01] MEDS: CHOLECALCIFEROL (D3) 1,000 UNIT (25 MCG) TABLET PO SCH (10:15)
[2020-06-01] MEDS: MULTIVITAMIN TABLET PO SCH (10:15)
[2020-06-01] MEDS: FAMOTIDINE INJ/PF 20 MG/2 ML SDV IV SCH ×2 (10:15→21:55)
[2020-06-01] MEDS: LISINOPRIL 10 MG TABLET PO SCH (10:15)
[2020-06-01] MEDS: NICOTINE 14 MG/24 HR PATCH.TD24 TD SCH (10:16)
[2020-06-01] MEDS: AZITHROMYCIN 250 MG TABLET PO SCH (12:42)
--- NOTE | 2020-06-01 16:03 | PDOC PROGRESS REPORT ---
Subjective Progress Note for:: 06/01/20 Subjective:: JULIANA CARRASCO is a 59 year old female who presented to the emergency room with an 8-day history of abdominal pain. She admits the onset of right lower quadrant abdominal pain 8 days ago, gradually migrating to the right upper abdomen and epigastrium, gradually worsening in intensity to have become severe over the last 3 days. Her abdominal pain has been accompanied by 5 days of nausea with vomiting and 3 days of diarrhea. Her abdominal pain has been associated with decreased oral intake, malaise and fatigue. She denies other associated or accompanying signs and symptoms. She admits prior similar episodes with Crohn's disease. She has not identified any aggravating or ameliorating factors for her abdominal pain. She was seen in the emergency room on 05/26/2020 and treated for the same symptoms with no improvement over the course of the last 3 days resulting in her return to the hospital for further treatment. In the emergency room she was found to have a minimally elevated serum lipase and a leukocytosis with clinical evidence of dehydration. She was treated with IV fluids and subsequently admitted to the hospital for further evaluation and treatment having failed outpatient therapy. Just prior to leaving the emergency room to be transported to the floor she had a large bloody diarrhea episode. 05/30/20. She was seen and examined at bedside. She still complains of abdominal pain right lower quadrant area but says it is much less compared to when she came in. Diarrhea has improved, no further episodes of bloody bowel movement she also stated that she was first diagnosed with Crohn's disease when she was 17 years old and has received multiple unrecalled medications since that time but her Crohn's disease has not flared for the past couple of years. 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 She had some concerns about getting insulin for her diabetes and was insisting that she gets put back on Metformin. I explained to her the reason why we do not generally give Metformin inpatient. She is currently on methylprednisolone. 05/31/20. She was seen and examined at bedside. Had about 7 episodes of watery so semi formed stool minimal blood. Abdominal pain is better compared to yesterday. No nausea/vomiting and she is tolerating her regular diet. No other concern at this time. 06/01/20 She was seen and examined at bedside. Had about 5 bowel movements today, less watery, non bloody. abdominal pain stable at 3/5. Appetite good, no nausea/vomiting. Stool culture grew campylobacter specie which cn also cause bloody diarrhea. Azithromycin started. Steroids for Crohn's flare switched to Prednisone 40 mg/day. If diarrhea does not improve by tomorrow she might need a colonoscopy by GI urgently. Reason For Visit: EPIGASTRIC ABDOMINAL PAIN,ELEVATED LIPASE,NAUSEA W Physical Exam Vital Signs: Temp Pulse Resp BP Pulse Ox 98.3 F 63 17 157/64 H 100 06/01/20 11:14 06/01/20 11:14 06/01/20 11:14 06/01/20 11:14 06/01/20 11:14 Intake & Output 05/31/20 06/01/20 06/02/20 07:59 06:59 06:59 Intake Total 1820 Balance 1820 Weight General appearance: PRESENT: no acute distress, cooperative Head exam: PRESENT: atraumatic, normocephalic Eye exam: PRESENT: EOMI, PERRLA Mouth exam: PRESENT: moist Neck exam: PRESENT: full ROM Respiratory exam: PRESENT: clear to auscultation kedar, symmetrical, unlabored Cardiovascular exam: PRESENT: RRR, +S1, +S2 Pulses: PRESENT: +2 pedal pulses bilateral Vascular exam: PRESENT: normal capillary refill GI/Abdominal exam: PRESENT: normal bowel sounds, soft. ABSENT: rebound, tenderness Rectal exam: PRESENT: bloody stool Extremities exam: PRESENT: full ROM Musculoskeletal exam: PRESENT: full ROM Neurological exam: PRESENT: alert, altered, oriented to person, oriented to place, oriented to time, oriented to situation Psychiatric exam: PRESENT: normal mood Skin exam: PRESENT: normal color Results Laboratory Results: 06/01/20 04:17 06/01/20 04:17 06/01/20 06/01/20 04:17 04:17 WBC 15.6 H RBC 3.28 L Hgb 11.5 L Hct 32.1 L MCV 98 H MCH 35.0 H MCHC 35.7 RDW 12.3 Plt Count 496 H Seg Neutrophils % Not Reportable Sodium 139.8 Potassium 3.4 L D Chloride 110 H Carbon Dioxide 20 L Anion Gap 10 BUN 12 Creatinine 0.57 Est GFR ( Amer) > 60 Glucose 140 H Calcium 8.6 Magnesium 1.2 L* Amylase 88 Lipase 424.2 H 05/30/20 07:42 Stool - Stool - Final Impressions: Abdomen/Pelvis CT 05/30/20 00:00 IMPRESSION: 1. No definite acute intra-abdominal or intrapelvic pathology. 2. There appears to be mild colonic wall thickening involving the mid transverse colon which is nonspecific but can be seen with inflammatory bowel disease. Additionally, there is a fat halo sign along the cecum and ascending colon which can be seen with Crohn's disease. 3. Remote cholecystectomy and hysterectomy. Assessment and Plan - Diagnosis (1) Crohn's disease Qualifiers: Gastrointestinal tract location: large intestine Digestive disease complication type: with rectal bleeding Qualified Code(s): K50.111 - Crohn's disease of large intestine with rectal bleeding Is this a current diagnosis for this admission?: Yes Plan: -Came in due to 1 week history of abdominal pain right lower quadrant with nausea vomiting anorexia is 5-10 episodes of diarrhea per day Denied any fever oral lesions arthritis or arthralgia -History of Crohn's disease diagnosed when he she was 17 received multiple treatments for it currently not on any medications for Crohn's -WBC 17.4>16.9> -CT abdomen mild colonic wall thickening involving the mid transverse colon which is nonspecific but can be seen with inflammatory bowel disease. Additionally there is a fat halo sign along the cecum and ascending colon which can be seen with Crohn's disease. - C. diff negative - CDAI (Crohn's disease activity Index) 339 - switched to prednisone 40 mg daily - loperamide for diarrhea -She will need a GI follow-up (2) Campylobacter diarrhea Is this a current diagnosis for this admission?: Yes Plan: - stool culture grew campylobacter specie which can also cause bloody diarrhea and can mimic IBD - patient started on azithro 500 BID for 3 days - if still having diarrhea ultimately she would need a colonoscopy to differentiate (3) Diarrhea Qualifiers: Diarrhea type: unspecified type Qualified Code(s): R19.7 - Diarrhea, unspecified Is this a current diagnosis for this admission?: Yes Plan: -Secondary to Crohn's disease or campylobacter -We will continue IV hydration and loperamide (4) Hematochezia Is this a current diagnosis for this admission?: Yes Plan: -Secondary to Crohn's disease -Hemoglobin stable 13.6>11.5 -We will continue to monitor for now (5) Diabetes mellitus type 2 in nonobese Is this a current diagnosis for this admission?: Yes Plan: -On Metformin extended release in the outpatient -Will hold during this admission -Long-acting insulin. Patient is very hesitant to be given short acting insulin with meals -Accu-Chek -Glycemia protocol (6) Leukocytosis Qualifiers: Leukocytosis type: unspecified Qualified Code(s): D72.829 - Elevated white blood cell count, unspecified Is this a current diagnosis for this admission?: Yes Plan: -Likely secondary to Crohn's flare and steroid use -Febrile no abscess on CT scan -on azithro for campylobacter infection (7) Tobacco abuse Is this a current diagnosis for this admission?: Yes Plan: Counseling done -Nicotine patch ordered - Plan Summary Summary: . - Time Time Spent with patient: 25-34 minutes Anticipated Discharge Disposition: Home, Self Care Anticipated Discharge Timeframe: within 48 hours
[2020-06-01] MEDS: OXYCODONE-ACETAMINOPHEN 5-325 MG TABLET PO PRN ×2 (16:16→23:04)
[2020-06-01 19:37] LABS: ALBUMIN 2.9 g/dL (3.5-5.0); ALKALINE PHOSPHATASE 65 U/L (38-126); ANION GAP 10 (5-19); ASPARTATE AMINO TRANSFERASE 24 U/L (14-36); BILIRUBIN,DIRECT 0.1 mg/dL (0.0-0.4); BILIRUBIN,TOTAL 0.1 mg/dL (0.2-1.3); BLOOD UREA NITROGEN 9 mg/dL (7-20); CALCIUM 8.5 mg/dL (8.4-10.2); CARBON DIOXIDE 21 mmol/L (22-30); CHLORIDE 108 mmol/L (98-107); GLUCOSE 116 mg/dL (75-110); POTASSIUM 3.2 mmol/L (3.6-5.0); TOTAL PROTEIN 5.2 g/dL (6.3-8.2)
[2020-06-01] MEDS: GABAPENTIN 300 MG CAPSULE PO SCH (21:55)
[2020-06-01] MEDS: TRAZODONE HCL 50 MG TABLET PO SCH (22:00)
[2020-06-01] MEDS: INSULIN GLARGINE,HUM.REC.ANLOG 1,000 UNIT/10 ML VIAL SUBCUT SCH (22:00)
[2020-06-02] MEDS: HEPARIN SOD (PORCINE) 5,000 UNIT/ML 1 ML VIAL SUBCUT SCH ×2 (05:07→13:14)
[2020-06-02 06:33] LABS: HEMATOCRIT 30.9 % (36.0-47.0); HEMOGLOBIN 10.6 g/dL (12.0-15.5); MEAN CORPUSCULAR HEMOGLOBIN 34.2 pg (27.0-33.4); MEAN CORPUSCULAR HGB CONC 34.4 g/dL (32.0-36.0); MEAN CORPUSCULAR VOLUME 99 fl (80-97); PLATELET COUNT 417 10^3/uL (150-450); RED BLOOD COUNT 3.11 10^6/uL (3.72-5.28); RED CELL DISTRIBUTION WIDTH 12.4 % (11.5-14.0); WHITE BLOOD COUNT 11.6 10^3/uL (4.0-10.5)
[2020-06-02 06:53] LABS: ABSOLUTE LYMPHOCYTES# (MANUAL) 3.1 10^3/uL (0.5-4.7); ABSOLUTE MONOCYTES # (MANUAL) 0.9 10^3/uL (0.1-1.4); BASOPHILS % (MANUAL) 0 % (0-2); EOSINOPHILS % (MANUAL) 0 % (0-6); LYMPHOCYTES % (MANUAL) 27 % (13-45); MONOCYTES % (MANUAL) 8 % (3-13); PLATELET CLUMPS PRESENT; PLATELET COMMENT ADEQUATE; RBC MORPHOLOGY COMMENT NORMO-CYTIC/CHROMIC; SEGMENTED NEUTROPHILS % (MAN) 65 % (42-78); TOTAL CELLS COUNTED 100
[2020-06-02] MEDS: MAGNESIUM OXIDE 400 MG TABLET PO SCH ×3 (08:18→18:00)
[2020-06-02] MEDS: OXYCODONE-ACETAMINOPHEN 5-325 MG TABLET PO PRN ×2 (08:39→14:39)
[2020-06-02] MEDS: ONDANSETRON HCL INJ/PF 4 MG/2 ML SDV IV PRN (08:41)
[2020-06-02] MEDS ORDERED: POTASSIUM CHLORIDE 20 MEQ PACKET PO SCH (10:00)
[2020-06-02] MEDS ORDERED: PREDNISONE 20 MG TABLET PO SCH (10:00)
[2020-06-02] MEDS: FAMOTIDINE INJ/PF 20 MG/2 ML SDV IV SCH (10:31)
[2020-06-02] MEDS: NICOTINE 14 MG/24 HR PATCH.TD24 TD SCH (10:31)
[2020-06-02] MEDS: AZITHROMYCIN 250 MG TABLET PO SCH (10:32)
[2020-06-02] MEDS: CHOLECALCIFEROL (D3) 1,000 UNIT (25 MCG) TABLET PO SCH (10:33)
[2020-06-02] MEDS: MULTIVITAMIN TABLET PO SCH (10:33)
[2020-06-02] MEDS: LISINOPRIL 10 MG TABLET PO SCH (10:34)
[2020-06-02] MEDS: NORMAL SALINE 1000 ML 1,000 ML IV PRN (10:37)
[2020-06-02] MEDS: DOCUSATE SODIUM 100 MG/10 ML UDC PO SCH ×2 (11:10→18:00)
[2020-06-02 16:36] VITALS: BP 134/65
--- NOTE | 2020-06-02 20:22 | PDOC DISCHARGE SUMMARY ---
Impression - Admit/DC Date/PCP Admission Date/Primary Care Provider: 05/29/20 23:47 [facility] Discharge Date: 06/02/20 - Discharge Diagnosis (1) Crohn's disease Is this a current diagnosis for this admission?: Yes (2) Campylobacter diarrhea Is this a current diagnosis for this admission?: Yes (3) Diarrhea Is this a current diagnosis for this admission?: Yes (4) Hematochezia Is this a current diagnosis for this admission?: Yes (5) Diabetes mellitus type 2 in nonobese Is this a current diagnosis for this admission?: Yes (6) Leukocytosis Is this a current diagnosis for this admission?: Yes (7) Tobacco abuse Is this a current diagnosis for this admission?: Yes - Assessment Summary: (1) Crohn's disease Qualifiers: Gastrointestinal tract location: large intestine Digestive disease complication type: with rectal bleeding Qualified Code(s): K50.111 - Crohn's disease of large intestine with rectal bleeding Is this a current diagnosis for this admission?: Yes Plan: -Came in due to 1 week history of abdominal pain right lower quadrant with nausea vomiting anorexia is 5-10 episodes of diarrhea per day Denied any fever oral lesions arthritis or arthralgia -History of Crohn's disease diagnosed when he she was 17 received multiple treatments for it currently not on any medications for Crohn's -WBC 17.4>16.9> -CT abdomen mild colonic wall thickening involving the mid transverse colon which is nonspecific but can be seen with inflammatory bowel disease. Additionally there is a fat halo sign along the cecum and ascending colon which can be seen with Crohn's disease. - C. diff negative - CDAI (Crohn's disease activity Index) 339 - switched to prednisone 40 mg daily - loperamide for diarrhea -She will need a GI follow-up (2) Campylobacter diarrhea Is this a current diagnosis for this admission?: Yes Plan: - stool culture grew campylobacter specie which can also cause bloody diarrhea and can mimic IBD - patient started on azithro 500 BID for 3 days - if still having diarrhea ultimately she would need a colonoscopy to differentiate (3) Diarrhea Qualifiers: Diarrhea type: unspecified type Qualified Code(s): R19.7 - Diarrhea, unspecified Is this a current diagnosis for this admission?: Yes Plan: -Secondary to Crohn's disease or campylobacter -We will continue IV hydration and loperamide (4) Hematochezia Is this a current diagnosis for this admission?: Yes Plan: -Secondary to Crohn's disease -Hemoglobin stable 13.6>11.5 -We will continue to monitor for now (5) Diabetes mellitus type 2 in nonobese Is this a current diagnosis for this admission?: Yes Plan: -On Metformin extended release in the outpatient -Will hold during this admission -Long-acting insulin. Patient is very hesitant to be given short acting insulin with meals -Accu-Chek -Glycemia protocol (6) Leukocytosis Qualifiers: Leukocytosis type: unspecified Qualified Code(s): D72.829 - Elevated white blood cell count, unspecified Is this a current diagnosis for this admission?: Yes Plan: -Likely secondary to Crohn's flare and steroid use -Febrile no abscess on CT scan -on azithro for campylobacter infection (7) Tobacco abuse Is this a current diagnosis for this admission?: Yes Plan: Counseling done -Nicotine patch ordered . - Additional Information Resuscitation Status: Full Code Discharge Diet: As Tolerated Discharge Activity: Activity As Tolerated Referrals: [facility] [Primary Care Provider] - Follow up as needed Prescriptions: Prednisone [Deltasone 20 mg Tablet] 40 mg PO DAILY 7 Days #30 tablet Loperamide HCl [Imodium 2 mg Capsule] 2 mg PO Q6HP PRN 2 Days #10 capsule PRN Reason: Magnesium Oxide [Mag-Ox 400 mg Tablet] 400 mg PO MEALS 14 Days #14 tablet Oxycodone HCl/Acetaminophen [Percocet 5-325 mg Tablet] 1 tab PO Q6HP PRN 10 Days #10 tablet PRN Reason: Potassium Chloride [Potassium Chloride 20 Meq Packet] 20 meq PO DAILY 14 Days #14 packet Acetaminophen [Tylenol 325 mg Tablet] 650 mg PO Q4HP PRN 15 Days #15 tablet PRN Reason: Azithromycin [Zithromax 250 mg Tablet] 500 mg PO DAILY 3 Days #3 tablet Home Medications: Lisinopril [Prinivil 10 mg Tablet] 10 mg PO DAILY 08/25/16 Metformin HCl [Metformin ER Gastric] 500 mg PO DAILY 08/25/16 Cholecalciferol (Vitamin D3) [Vitamin D3 1000 Unit Tablet] 2,000 unit PO DAILY 05/30/20 Cyclobenzaprine HCl [Flexeril 10 mg Tablet] 10 mg PO Q8 05/30/20 Gabapentin [Neurontin 300 mg Capsule] 300 mg PO QHS 05/30/20 Multivitamin [Multiple Vitamins] 1 tab PO DAILY 05/30/20 Promethazine HCl [Phenergan 25 mg Tablet] 25 mg PO Q8HP PRN 05/30/20 Trazodone HCl 150 mg PO QHS 05/30/20 Acetaminophen [Tylenol 325 mg Tablet] 650 mg PO Q4HP PRN 15 Days #15 tablet 06/02/20 Azithromycin [Zithromax 250 mg Tablet] 500 mg PO DAILY 3 Days #3 tablet 06/02/20 Loperamide HCl [Imodium 2 mg Capsule] 2 mg PO Q6HP PRN 2 Days #10 capsule 06/02/20 Magnesium Oxide [Mag-Ox 400 mg Tablet] 400 mg PO MEALS 14 Days #14 tablet 06/02/20 Oxycodone HCl/Acetaminophen [Percocet 5-325 mg Tablet] 1 tab PO Q6HP PRN 10 Days #10 tablet 06/02/20 Potassium Chloride [Potassium Chloride 20 Meq Packet] 20 meq PO DAILY 14 Days #14 packet 06/02/20 Prednisone [Deltasone 20 mg Tablet] 40 mg PO DAILY 7 Days #30 tablet 06/02/20 History of Present Illiness History of Present Illness: JULIANA CARRASCO is a 59 year old female who presented to the emergency room with an 8-day history of abdominal pain. She admits the onset of right lower quadrant abdominal pain 8 days ago, gradually migrating to the right upper abdomen and epigastrium, gradually worsening in intensity to have become severe over the last 3 days. Her abdominal pain has been accompanied by 5 days of nausea with vomiting and 3 days of diarrhea. Her abdominal pain has been associated with decreased oral intake, malaise and fatigue. She denies other associated or accompanying signs and symptoms. She admits prior similar episodes with Crohn's disease. She has not identified any aggravating or ameliorating factors for her abdominal pain. She was seen in the emergency room on 05/26/2020 and treated for the same symptoms with no improvement over the course of the last 3 days resulting in her return to the hospital for further treatment. In the emergency room she was found to have a minimally elevated serum lipase and a leukocytosis with clinical evidence of dehydration. She was treated with IV fluids and subsequently admitted to the hospital for further evaluation and treatment having failed outpatient therapy. Just prior to leaving the emergency room to be transported to the floor she had a large bloody diarrhea episode. Hospital Course Hospital Course: 05/30/20. She was seen and examined at bedside. She still complains of abdominal pain right lower quadrant area but says it is much less compared to when she came in. Diarrhea has improved, no further episodes of bloody bowel movement she also stated that she was first diagnosed with Crohn's disease when she was 17 years old and has received multiple unrecalled medications since that time but her Crohn's disease has not flared for the past couple of years. 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 She had some concerns about getting insulin for her diabetes and was insisting that she gets put back on Metformin. I explained to her the reason why we do not generally give Metformin inpatient. She is currently on methylprednisolone. 05/31/20. She was seen and examined at bedside. Had about 7 episodes of watery so semi formed stool minimal blood. Abdominal pain is better compared to yesterday. No nausea/vomiting and she is tolerating her regular diet. No other concern at this time. 06/01/20 She was seen and examined at bedside. Had about 5 bowel movements today, less watery, non bloody. abdominal pain stable at 3/5. Appetite good, no nausea/vomiting. Stool culture grew campylobacter specie which cn also cause bloody diarrhea. Azithromycin started. Steroids for Crohn's flare switched to Prednisone 40 mg/day. If diarrhea does not improve by tomorrow she might need a colonoscopy by GI urgently. 06/02/20 Diarrhea has improved and she does not have any more bloody diarrhea. She is able to tolerate oral food intake. patient was discharged on azithro and prednisone taper and was advised to follow up with a gastro outpatient for colonoscopy Physical Exam Vital Signs: Temp Pulse Resp BP Pulse Ox 98.4 F 77 16 134/65 H 100 06/02/20 16:33 06/02/20 16:33 06/02/20 16:33 06/02/20 16:33 06/02/20 16:33 Intake & Output 06/01/20 06/02/20 06/03/20 06:59 06:59 06:59 Intake Total 3120 700 Balance 3120 700 Weight 66.59 kg 66.59 kg General appearance: PRESENT: no acute distress, cooperative Head exam: PRESENT: atraumatic, normocephalic Eye exam: PRESENT: EOMI, PERRLA Mouth exam: PRESENT: moist Neck exam: PRESENT: full ROM Respiratory exam: PRESENT: clear to auscultation kedar, symmetrical Cardiovascular exam: PRESENT: RRR, +S1, +S2 Pulses: PRESENT: +2 pedal pulses bilateral GI/Abdominal exam: PRESENT: normal bowel sounds, soft. ABSENT: rebound, tenderness Extremities exam: PRESENT: full ROM Musculoskeletal exam: PRESENT: full ROM Neurological exam: PRESENT: alert, awake, oriented to person, oriented to place, oriented to time, oriented to situation Results Laboratory Results: WBC 11.6 10^3/uL (4.0-10.5) H 06/02/20 05:53 RBC 3.11 10^6/uL (3.72-5.28) L 06/02/20 05:53 Hgb 10.6 g/dL (12.0-15.5) L 06/02/20 05:53 Hct 30.9 % (36.0-47.0) L 06/02/20 05:53 MCV 99 fl (80-97) H 06/02/20 05:53 MCH 34.2 pg (27.0-33.4) H 06/02/20 05:53 MCHC 34.4 g/dL (32.0-36.0) 06/02/20 05:53 RDW 12.4 % (11.5-14.0) 06/02/20 05:53 Plt Count 417 10^3/uL (150-450) 06/02/20 05:53 Lymph % (Auto) Not Reportable 06/02/20 05:53 [place] % (Auto) Not Reportable 06/02/20 05:53 Eos % (Auto) Not Reportable 06/02/20 05:53 Baso % (Auto) Not Reportable 06/02/20 05:53 Absolute Neuts (auto) Not Reportable 06/02/20 05:53 Absolute Lymphs (auto) Not Reportable 06/02/20 05:53 Absolute Monos (auto) Not Reportable 06/02/20 05:53 Absolute Eos (auto) Not Reportable 06/02/20 05:53 Absolute Basos (auto) Not Reportable 06/02/20 05:53 Total Counted 100 06/02/20 05:53 Seg Neutrophils % Not Reportable 06/02/20 05:53 Seg Neuts % (Manual) 65 % (42-78) 06/02/20 05:53 Band Neutrophils % 2 % (3-5) L 05/30/20 04:32 Lymphocytes % (Manual) 27 % (13-45) 06/02/20 05:53 Monocytes % (Manual) 8 % (3-13) 06/02/20 05:53 Eosinophils % (Manual) 0 % (0-6) 06/02/20 05:53 Basophils % (Manual) 0 % (0-2) 06/02/20 05:53 Metamyelocytes % 2 % (0-1) H 05/30/20 04:32 Myelocytes % 1 % (0) H 05/30/20 04:32 Abs Neuts (Manual) 7.5 10^3/uL (1.7-8.2) 06/02/20 05:53 Abs Lymphs (Manual) 3.1 10^3/uL (0.5-4.7) 06/02/20 05:53 Abs Monocytes (Manual) 0.9 10^3/uL (0.1-1.4) 06/02/20 05:53 Absolute Eos (Manual) 0.0 10^3/uL (0.0-0.6) 06/02/20 05:53 Abs Basophils (Manual) 0.0 10^3/uL (0.0-0.2) 06/02/20 05:53 Toxic Granulation SLIGHT 05/29/20 20:19 Clumped Platelets PRESENT 06/02/20 05:53 Platelet Comment ADEQUATE 06/02/20 05:53 Polychromasia SLIGHT 06/01/20 04:17 Macrocytosis SLIGHT 06/01/20 04:17 RBC Morph Comment NORMO-CYTIC/CHROMIC 06/02/20 05:53 Sodium 138.7 mmol/L (137-145) 06/01/20 19:09 Potassium 3.2 mmol/L (3.6-5.0) L 06/01/20 19:09 Chloride 108 mmol/L (98-107) H 06/01/20 19:09 Carbon Dioxide 21 mmol/L (22-30) L 06/01/20 19:09 Anion Gap 10 (5-19) 06/01/20 19:09 BUN 9 mg/dL (7-20) 06/01/20 19:09 Creatinine 0.59 mg/dL (0.52-1.25) 06/01/20 19:09 Est GFR ( Amer) > 60 (>60) 06/01/20 19:09 Est GFR (MDRD) Non-Af > 60 (>60) 06/01/20 19:09 Glucose 116 mg/dL (75-110) H 06/01/20 19:09 POC Glucose 94 mg/dL (70-110) 06/02/20 10:52 Hemoglobin A1c % 4.2 % (4.7-6.0) L 05/30/20 04:32 Calcium 8.5 mg/dL (8.4-10.2) 06/01/20 19:09 Phosphorus 4.1 mg/dL (2.5-4.5) 05/29/20 20:19 Magnesium 2.0 mg/dL (1.6-2.3) 06/02/20 05:53 Total Bilirubin 0.1 mg/dL (0.2-1.3) L 06/01/20 19:09 Direct Bilirubin 0.1 mg/dL (0.0-0.4) 06/01/20 19:09 Neonat Total Bilirubin Not Reportable 06/01/20 19:09 Neonat Direct Bilirubin Not Reportable 06/01/20 19:09 Neonat Indirect Bili Not Reportable 06/01/20 19:09 AST 24 U/L (14-36) 06/01/20 19:09 ALT 22 U/L (<35) 06/01/20 19:09 Alkaline Phosphatase 65 U/L (38-126) 06/01/20 19:09 Lactate Dehydrogenase 120 U/L (120-246) 05/29/20 22:32 C-Reactive Protein 22.3 mg/L (<10.0) H 05/31/20 07:20 Total Protein 5.2 g/dL (6.3-8.2) L 06/01/20 19:09 Albumin 2.9 g/dL (3.5-5.0) L 06/01/20 19:09 Triglycerides 228 mg/dL (<150) H 05/30/20 04:32 Cholesterol 108.39 mg/dL (0-200) 05/30/20 04:32 LDL Cholesterol Direct 33 mg/dL (<100) 05/30/20 04:32 VLDL Cholesterol 45.6 mg/dL (10-31) H 05/30/20 04:32 HDL Cholesterol 36 mg/dL (>40) L 05/30/20 04:32 Amylase 79 U/L (30-110) 06/02/20 05:53 Lipase 380.5 U/L (23-300) H 06/02/20 05:53 TSH 0.65 uIU/mL (0.47-4.68) 05/30/20 04:32 Urine Color YELLOW 05/29/20 21:09 Urine Appearance SLIGHTLY-CLOUDY 05/29/20 21:09 Urine pH 5.0 (5.0-9.0) 05/29/20 21:09 Ur Specific [place] 1.017 05/29/20 21:09 Urine Protein 30 mg/dL (NEGATIVE) H 05/29/20 21:09 Urine Glucose (UA) NEGATIVE mg/dL (NEGATIVE) 05/29/20 21:09 Urine Ketones 20 mg/dL (NEGATIVE) H 05/29/20 21:09 Urine Blood SMALL (NEGATIVE) H 05/29/20 21:09 Urine Nitrite NEGATIVE (NEGATIVE) 05/29/20 21:09 Urine Bilirubin NEGATIVE (NEGATIVE) 05/29/20 21:09 Urine Urobilinogen NEGATIVE mg/dL (<2.0) 05/29/20 21:09 Ur Leukocyte Esterase NEGATIVE (NEGATIVE) 05/29/20 21:09 Urine WBC (Auto) 6 /HPF 05/29/20 21:09 Urine RBC (Auto) 1 /HPF 05/29/20 21:09 U Hyaline Cast (Auto) 40 /LPF 05/29/20 21:09 Squamous Epi Cells Auto 3 /HPF 05/29/20 21:09 Urine Mucus (Auto) FEW /LPF 05/29/20 21:09 Urine Ascorbic Acid NEGATIVE (NEGATIVE) 05/29/20 21:09 Stool Occult Blood POSITIVE (NEGATIVE) 05/30/20 07:30 Stl C. Difficile GDH Ag NEGATIVE (NEGATIVE) 05/31/20 18:18 Stl C.difficile Tox A&B NEGATIVE (NEGATIVE) 05/31/20 18:18 Slides for Path Review PATHOLOGIST REVIEWED 05/30/20 04:32 Impressions: Abdomen/Pelvis CT 05/30/20 00:00 IMPRESSION: 1. No definite acute intra-abdominal or intrapelvic pathology. 2. There appears to be mild colonic wall thickening involving the mid transverse colon which is nonspecific but can be seen with inflammatory bowel disease. Additionally, there is a fat halo sign along the cecum and ascending colon which can be seen with Crohn's disease. 3. Remote cholecystectomy and hysterectomy. Plan Plan of Treatment: - Prednisone to be tapered for 1 month - needs a GI follow up outpatient for her crohn's Time Spent: Less than 30 Minutes Stroke Is this a Stroke Patient?: No Acute Heart Failure Is this a Heart Failure Patient?: No
== END 2020-06-02 18:02 | disposition home or self-care (01) | DRG 387 ==
LOC: ER 19:44 → EH 23:47 → 5 05-30 01:41 → 2N 06-01 16:45
PROVIDERS: ADMIT Emergency Medicine; ATTEND Internal Medicine
DX: K50.111 Crohn's disease of large intestine with rectal bleeding (principal); A04.5 Campylobacter enteritis; E11.9 Type 2 diabetes mellitus without complications; E78.5 Hyperlipidemia, unspecified; I10 Essential (primary) hypertension; E86.1 Hypovolemia; R74.8 Abnormal levels of other serum enzymes; F17.210 Nicotine dependence, cigarettes, uncomplicated; E86.0 Dehydration; Z87.11 Personal history of peptic ulcer disease; Z79.84 Long term (current) use of oral hypoglycemic drugs; Z79.899 Other long term (current) drug therapy; Z79.891 Long term (current) use of opiate analgesic; Z79.52 Long term (current) use of systemic steroids
CPT/HCPCS: 36415; 74176; 80048; 80053; 80061; 81001; 82150; 82272; 82962; 83036; 83615; 83690; 83735; 84100; 84443; 85025; 86140; 87045; 87070; 87077; 87205; 87324; 87449; 93005; 93010; 96361; 96374; 96375; 99285; J1815; J2270; J2405; J2920; J2930; J3475; J3490; J7030; J7120; J7512; S0028

== ENCOUNTER → 2020-06-30 | Outpatient (CLI) | payer OTHER ==
[2020-06-30 15:09] LABS: ABSOLUTE EOSINOPHILS # (AUTO) 0.1 10^3/uL (0.0-0.6); ABSOLUTE LYMPHOCYTES (AUTO) 2.8 10^3/uL (0.5-4.7); ABSOLUTE MONOCYTES (AUTO) 0.6 10^3/uL (0.1-1.4); ABSOLUTE NEUT (AUTO) 3.3 10^3/uL (1.7-8.2); BASOPHILS % (AUTO) 0.6 % (0-2); EOSINOPHILS % (AUTO) 1.7 % (0-6); HEMOGLOBIN 12.9 g/dL (12.0-15.5); LYMPHOCYTES % (AUTO) 41.1 % (13-45); MEAN CORPUSCULAR HEMOGLOBIN 34.6 pg (27.0-33.4); MEAN CORPUSCULAR VOLUME 102 fl (80-97); MONOCYTES % (AUTO) 8.4 % (3-13); PLATELET COUNT 364 10^3/uL (150-450); RED BLOOD COUNT 3.75 10^6/uL (3.72-5.28); RED CELL DISTRIBUTION WIDTH 12.9 % (11.5-14.0); SEGMENTED NEUTROPHILS % (AUTO) 48.2 % (42-78); TOTAL CELLS COUNTED % (AUTO) 100 %; WHITE BLOOD COUNT 6.8 10^3/uL (4.0-10.5)
[2020-06-30 15:25] LABS: ALBUMIN 4.5 g/dL (3.5-5.0); ALKALINE PHOSPHATASE 82 U/L (38-126); ANION GAP 8 (5-19); ASPARTATE AMINO TRANSFERASE 24 U/L (14-36); BILIRUBIN,DIRECT 0.1 mg/dL (0.0-0.4); BILIRUBIN,TOTAL 0.4 mg/dL (0.2-1.3); BLOOD UREA NITROGEN 8 mg/dL (7-20); CALCIUM 10.2 mg/dL (8.4-10.2); CARBON DIOXIDE 28 mmol/L (22-30); CHLORIDE 102 mmol/L (98-107); GLUCOSE 156 mg/dL (75-110); POTASSIUM 4.5 mmol/L (3.6-5.0); TOTAL PROTEIN 6.9 g/dL (6.3-8.2)
== END ==
LOC: CCC 13:56
PROVIDERS: ATTEND Family Medicine
DX: Z00.00 Encounter for general adult medical examination without abnormal findings (principal)
CPT/HCPCS: 36415; 80053; 83690; 85025